=== PATIENT | male | born 1960 | race Caucasian/White ===

== ENCOUNTER 2018-03-11 13:35 | Inpatient (IN) | payer BC, MEDICARE ==
[~2018-03-11] VITALS: Ht 165.1 cm; Wt 113.0 kg
[~2018-03-11 13:35] MED LIST: ACULAR OPHTH DR10 ML OP; ALDACTONE 25MG25 MG PO; AMBIEN 10MG10 MG; AMBIEN 10MG10 MG PO; AMBIEN10 MG PO; ASPIRIN 32325 MG/TAB PO; ASPIRIN E.C. 8181 MG PO; ATENOLOL100 MG PO; BROMDAY 1.7 ML1.7 ML OS; CALCIUM CARBONATE PO; CATAPRES 0.1MG0.1 MG PO; CELLCEPT 5500 MG/TAB PO; CEPHALEXIN500 M1 PO; CEPHALEXIN500 MG PO; CLOPIDOGREL; CLOTRIMAZOLE100 MG PO; COMBIGAN 0.2%-0.5 ML OP; COMBIGAN 0.2%-010 ML OS; COREG 25MG25 MG/TAB PO; COREG PO; CORTISONE; DIOVAN HCT PO; DIOVAN PO; DIOVAN160 MG PO; DUREZOL 5 ML5 ML OS; ELITE MAGNESIUM1 TAB PO; EPA FISH OIL1000 MG PO; EPA1000 MG PO; FASTIN30 MG PO; FOLIC ACID 11 MG/TA1 PO; FOLIC ACID1 MG PO; Folic Acid PO; GABAPENTIN PO; GABAPENTIN100 M1 PO; GLYBURIDE MICRON3 MG PO; HUMALOG100 U/ML SC; HUMALOG100 U/ML SQ; LANTUS100 U/ML; LANTUS100 U/ML SC; LANTUS100 U/ML SQ; LASIX 40MG TABL40 MG PO; LASIX 80MG TABL80 MG PO; LEVAQUIN 5500 MG/TAB PO; LIPITOR 10MG10 MG PO; LISINOPRIL20 MG PO; LISINOPRIL40 MG PO; LIVALO2 MG PO; LOPID 600M600 MG/TAB; LOPID 600M600 MG/TAB PO; LORTAB 5/500 501 TAB PO; LUMIGAN 2.5 ML2.5 M1 OP; LUMIGAN 2.5 ML2.5 ML OP; MAG-OX 400400 MG/TAB PO; MICRO-K 1010 MEQ PO; MICRO-K8 MEQ PO; MYFORTIC180 MG PO; MYFORTIC360 MG PO; NEPHROCAP PO; NEPHROCAPS PO; NEPHROCAPS QT1 ODT PO; NEURONTIN100 MG/CAP PO; NEURONTIN300 MG/CAP; NEURONTIN300 MG/CAP PO; NEXIUM 20MG20 MG PO; NEXIUM 40MG40 MG PO; NEXIUM I.V. 40M40 MG; NEXIUM40 MG PO; NORVASC 5MG5 MG/TAB PO; NORVASC10 MG PO; OCUFLOX OPHTH DR5 ML OU; PHENDIMETRAZIN105 MG PO; PHENTERMINE15 MG PO; PHOS LO PO; PLAVIX 75MG TAB75 MG PO; PRED FORTE 1 ML1 ML OP; PREDNISONE 5MG5 MG PO; PREDNISONE20 MG PO; PREVACID 15MG15 M1 PO; PRILOSEC20 MG PO; PROGRAF 1MG1 MG PO; PROGRAF5 MG PO; PROZAC 20MG20 MG PO; PROZAC40 MG PO; RENVELA800 MG PO; SENSIPAR30 MG PO; SENSIPAR60 MG PO; SEPTRA DS 8001 TAB; SODIUM BICARB; SODIUM BICARB PO; SODIUM BICARBONATE PO; TYLENOL 500MG500 MG PO; VALCYTE PO; VIAGRA; VITAMIN D1000 IU PO; VITAMIN D32000 I1 PO; VITAMIN D5000 IU PO; WELLBUTRIN SR150 M1 PO; ZANTAC 150150 MG PO; ZAROXOLYN PO; ZEMPLAR PO; ZESTRIL40 MG PO; ZOCOR40 MG PO; ZOVIRAX 200MG200 MG; [UNRECOGNIZED DRUG - OTHER] PO; [UNRECOGNIZED DRUG - OTHER] PO
[2018-03-14] VITALS (13 sets, daily range): BP systolic 117–185; BP diastolic 67–90; PULSE 69–96; TEMP 97.7–98.8
[2018-03-14] MEDS ORDERED: COREG 25MG25 MG/TAB PO (05:05)
[2018-03-14] MEDS ORDERED: PREDNISONE 5MG5 MG PO (05:34)
[2018-03-14] MEDS ORDERED: NOVOLIN 70/30 710 ML SQ (05:36)
[2018-03-14] MEDS ORDERED: NOVOLOG 100U100 U/M1 SQ (05:37)
[2018-03-14] MEDS ORDERED: COZAAR 25MG25 MG/TAB PO (05:51)
[2018-03-14] MEDS ORDERED: PROZAC40 MG PO (05:52)
[2018-03-15 03:51] VITALS: BP 152/68; BP 192/97; PULSE 100; PULSE 106; TEMP 98.2
[2018-03-15 07:01] LABS: HEMOGLOBIN 11.5 g/dl (13.5-18.0)
[2018-03-15 07:06] LABS: HEMATOCRIT 35.4 % (42.0-52.0)
[2018-03-15 07:41] VITALS: BP 178/91; PULSE 104; TEMP 98.9
[2018-03-15 11:52] VITALS: BP 185/95; PULSE 103; TEMP 98.4
[2018-03-15 15:35] VITALS: BP 187/93; PULSE 99; TEMP 98.6
[2018-03-15 19:59] VITALS: BP 186/92; PULSE 100; TEMP 98.4
[2018-03-16] VITALS (9 sets, daily range): BP systolic 149–198; BP diastolic 72–93; PULSE 90–106; TEMP 98.3–99.5
[2018-03-16 06:36] LABS: HEMOGLOBIN 11.5 g/dl (13.5-18.0)
[2018-03-16 06:39] LABS: HEMATOCRIT 36.2 % (42.0-52.0)
[2018-03-16 08:32] LABS: CALCIUM 9.5 mg/dL (8.4-10.2); CREATININE, serum 2.93 mg/dL (0.66-1.25); MAGNESIUM 1.5 mg/dL (1.6-2.3); POTASSIUM 4.4 mmol/L (3.4-5.0)
[2018-03-17 04:34] VITALS: BP 147/81; PULSE 98; TEMP 98.7
[2018-03-17 07:15] VITALS: BP 147/89; PULSE 93; TEMP 98.4
[2018-03-17 08:45] LABS: MEAN CELL VOLUME 88 fl (80.0-100.0); MEAN CORPUSCULAR HEMOGLOBIN 28 pg (27.0-31.0); MEAN CORPUSCULAR HGB CONC 31 g/dl (33.0-37.0); MEAN PLATELET VOLUME 9.5 fl (7.4-10.4); PLATELET COUNT 227 K/mm3 (130-400); RED BLOOD COUNT 3.98 M/mm3 (4.20-5.60); REDCELL DISTRIBUTION WIDTH-CV 15.5 % (11.5-14.5)
[2018-03-17 08:55] LABS: CALCIUM 9.4 mg/dL (8.4-10.2); CREATININE, serum 3.27 mg/dL (0.66-1.25); POTASSIUM 4.1 mmol/L (3.4-5.0)
[2018-03-17 08:57] LABS: HEMATOCRIT 35.1 % (42.0-52.0)
[2018-03-17 10:52] LABS: BAND 4 % (0-10); EOSINOPHIL 1 % (0-4); LYMPHOCYTE 17 % (20.0-51.0); NEUTROPHILS 73 % (42.0-75.2); PLATELET ESTIMATE NORMAL (NORMAL)
[2018-03-17 10:53] LABS: ANISOCYTOSIS 1+
[2018-03-17 11:57] VITALS: BP 145/75; PULSE 92; TEMP 98.9
[2018-03-17 16:32] VITALS: BP 138/65; PULSE 88; TEMP 98.3
[2018-03-17] MEDS ORDERED: ASPI325T6 PO (17:34)
[2018-03-17] MEDS ORDERED: TYLENOL 500MG500 MG PO (17:35)
[2018-03-17] MEDS ORDERED: ROXICODONE 55 MG/TAB PO (17:39)
[2018-03-17 19:43] VITALS: BP 178/86; PULSE 80; TEMP 98.2
[2018-03-18] VITALS (7 sets, daily range): BP systolic 136–172; BP diastolic 68–86; PULSE 80–92; TEMP 97.8–99.7
[2018-03-18 06:29] LABS: BASO % 0.3 % (0.0-2.0); EOS # 0.2 (0.0-0.7); EOS % 2.2 % (0-4.0); GRAN # 6.2 (1.4-6.5); GRAN % 66.2 % (42.2-75.2); HEMOGLOBIN 10.1 g/dl (13.5-18.0); LYMPH # 1.8 (1.2-3.4); LYMPH % 19.3 % (20.0-51.0); MEAN CELL VOLUME 87 fl (80.0-100.0); MEAN CORPUSCULAR HEMOGLOBIN 28 pg (27.0-31.0); MEAN CORPUSCULAR HGB CONC 32 g/dl (33.0-37.0); MEAN PLATELET VOLUME 9.7 fl (7.4-10.4); MONO % 10.7 % (1.7-9.3); PLATELET COUNT 214 K/mm3 (130-400); RED BLOOD COUNT 3.61 M/mm3 (4.20-5.60); REDCELL DISTRIBUTION WIDTH-CV 15.4 % (11.5-14.5)
[2018-03-18 06:31] LABS: HEMATOCRIT 31.4 % (42.0-52.0)
[2018-03-18 06:52] LABS: CREATININE, serum 3.29 mg/dL (0.66-1.25); POTASSIUM 4.3 mmol/L (3.4-5.0)
[2018-03-19 04:41] VITALS: BP 144/80; PULSE 81; TEMP 98.2
[2018-03-19 08:13] VITALS: BP 145/79; PULSE 82; TEMP 98.2
[2018-03-19 08:34] LABS: MEAN CELL VOLUME 89 fl (80.0-100.0); MEAN CORPUSCULAR HGB CONC 31 g/dl (33.0-37.0); MEAN PLATELET VOLUME 9.5 fl (7.4-10.4); PLATELET COUNT 213 K/mm3 (130-400); RED BLOOD COUNT 3.42 M/mm3 (4.20-5.60); REDCELL DISTRIBUTION WIDTH-CV 15.3 % (11.5-14.5)
[2018-03-19 08:35] LABS: HEMATOCRIT 30.5 % (42.0-52.0); HEMOGLOBIN 9.4 g/dl (13.5-18.0); MEAN CORPUSCULAR HEMOGLOBIN 27 pg (27.0-31.0)
[2018-03-19 08:45] LABS: CALCIUM 8.8 mg/dL (8.4-10.2); CREATININE, serum 3.33 mg/dL (0.66-1.25); POTASSIUM 4.6 mmol/L (3.4-5.0)
[2018-03-19 08:52] LABS: BAND 5 % (0-10); EOSINOPHIL 2 % (0-4); LYMPHOCYTE 14 % (20.0-51.0); NEUTROPHILS 75 % (42.0-75.2)
[2018-03-19 08:53] LABS: ANISOCYTOSIS 1+
[2018-03-19 08:54] LABS: HYPOCHROMIA 1+; PLATELET ESTIMATE NORMAL (NORMAL)
[2018-03-19 12:26] VITALS: BP 146/77; PULSE 81; TEMP 98.5
[2018-03-19] MEDS ORDERED: NORVASC 10MG10 MG PO (14:04)
[2018-03-19] MEDS ORDERED: COREG 6.256.25 MG/TA PO (14:04)
== END 2018-03-19 15:45 | disposition home or self-care (01) | DRG 470 ==
LOC: JCC 03-14 05:14
PROVIDERS: Hospitalist; Orthopaedic Surgery; Physician Assistant
PROC: 0SRD0J9 Replacement of Left Knee Joint with Synthetic Substitute, Cemented, Open Approach (ICD-10-PCS; principal; 2018-03-14 07:30)
DX: M17.12 Unilateral primary osteoarthritis, left knee (principal); Z94.0 Kidney transplant status; I48.91 Unspecified atrial fibrillation; Z95.5 Presence of coronary angioplasty implant and graft; E11.42 Type 2 diabetes mellitus with diabetic polyneuropathy; E11.319 Type 2 diabetes mellitus with unspecified diabetic retinopathy without macular edema; Z79.4 Long term (current) use of insulin; I12.9 Hypertensive chronic kidney disease with stage 1 through stage 4 chronic kidney disease, or unspecified chronic kidney disease; E11.22 Type 2 diabetes mellitus with diabetic chronic kidney disease; N18.9 Chronic kidney disease, unspecified; E83.42 Hypomagnesemia; I25.10 Atherosclerotic heart disease of native coronary artery without angina pectoris; Z87.891 Personal history of nicotine dependence
CPT/HCPCS: 99223; 99232-AI; 99233-AI; 99239; A9284; C1713; C1776; J1815; J1940; J2250; J2270; J2550; J2704; J3370; J3475; J7030; J7507; J7512; J7517

== ENCOUNTER 2018-04-15 11:13 | Emergency (ER) | payer BC ==
[~2018-04-15] VITALS: Ht 165.1 cm; Wt 109.1 kg
[~2018-04-15 11:13] MED LIST changes: +ASPI325T6 PO; +COREG 6.256.25 MG/TA PO; +COZAAR 25MG25 MG/TAB PO; +NORVASC 10MG10 MG PO; +NOVOLIN 70/30 710 ML SQ; +NOVOLOG 100U100 U/M1 SQ; +ROXICODONE 55 MG/TAB PO
[2018-04-15 11:17] VITALS: TEMP 100.7
[2018-04-15 11:55] LABS: BASO # 0.1 (0.0-0.2); BASO % 0.4 % (0.0-2.0); EOS % 0.1 % (0-4.0); GRAN # 12.2 (1.4-6.5); GRAN % 82.1 % (42.2-75.2); HEMOGLOBIN 10.9 g/dl (13.5-18.0); LYMPH # 1.2 (1.2-3.4); MEAN CELL VOLUME 86 fl (80.0-100.0); MEAN CORPUSCULAR HEMOGLOBIN 27 pg (27.0-31.0); MEAN CORPUSCULAR HGB CONC 32 g/dl (33.0-37.0); MEAN PLATELET VOLUME 10.4 fl (7.4-10.4); MONO # 1.3 (0.1-0.6); MONO % 8.9 % (1.7-9.3); PLATELET COUNT 247 K/mm3 (130-400); REDCELL DISTRIBUTION WIDTH-CV 14.6 % (11.5-14.5)
[2018-04-15 11:57] LABS: HEMATOCRIT 34.3 % (42.0-52.0)
[2018-04-15 12:12] LABS: ALBUMIN 4.2 gm/dL (3.5-5.0); BILIRUBIN,TOTAL 0.8 mg/dL (0.0-1.0); CALCIUM 10.2 mg/dL (8.4-10.2); POTASSIUM 5.2 mmol/L (3.4-5.0); TOTAL PROTEIN 7.7 gm/dL (6.4-8.2)
[2018-04-15 12:18] LABS: CREATININE, serum 4.39 mg/dL (0.66-1.25)
[2018-04-15] MEDS ORDERED: PREVACID 30MG30 M1 PO (12:28)
[2018-04-15 12:43] LABS: C-REACTIVE PROTEIN 46.8 mg/dL (0.0-0.9)
[2018-04-15 15:08] VITALS: BP 139/79; PULSE 96
== END 2018-04-15 15:27 | disposition short-term general hospital (02) ==
LOC: COL.ER 11:13
PROVIDERS: Physician Assistant
DX: A41.9 Sepsis, unspecified organism (principal); R65.20 Severe sepsis without septic shock; N18.9 Chronic kidney disease, unspecified; E11.22 Type 2 diabetes mellitus with diabetic chronic kidney disease; I25.10 Atherosclerotic heart disease of native coronary artery without angina pectoris; Z87.891 Personal history of nicotine dependence; Z98.890 Other specified postprocedural states; Z96.652 Presence of left artificial knee joint; Z79.82 Long term (current) use of aspirin; Z79.4 Long term (current) use of insulin
CPT/HCPCS: J1170; J2405; J3370; J7030; J7050

== ENCOUNTER 2018-04-19 15:45 | Outpatient (RCR) | payer BC ==
[~2018-04-19 15:45] MED LIST changes: +PREVACID24HROTC PO
[2018-04-22] MEDS ORDERED: ROXICODONE 55 MG/TAB PO (18:33)
[2018-04-22] MEDS ORDERED: ULTRAM 50MG TAB50 MG PO (18:35)
[2018-04-22] MEDS ORDERED: ASPIRIN 32325 MG/TA1 PO (19:24)
[2018-04-22] MEDS ORDERED: CYANOCOBAL1000 MCG/M IM (19:25)
[2018-04-22] MEDS ORDERED: INVANZ INJ1 G/VIAL IV (19:27)
[2018-04-22] MEDS ORDERED: FERROUS GL325 MG/TAB PO (19:28)
[2018-04-22] MEDS ORDERED: EPA FISH OIL1 SGL PO (19:29)
[2018-04-22] MEDS ORDERED: NOVOLIN N100 U/ML SQ (19:35)
[2018-04-22] MEDS ORDERED: LOPRESSOR 550 MG/TAB PO (19:37)
[2018-04-22] MEDS ORDERED: SENOKOT S 50 MG1 TAB PO (19:40)
[2018-04-22] MEDS ORDERED: SODIUM BICARBO650 MG PO (19:41)
[2018-04-22] MEDS ORDERED: SYSTANE 0.3-0.1 EACH OP (19:42)
[2018-04-22] MEDS ORDERED: HEPARIN SOD5000 U/ML SQ (19:51)
[2018-05-02] MEDS ORDERED: DULCOLAX S10 MG/SUPP RC (09:09)
[2018-05-02] MEDS ORDERED: SODIUM BICARBO650 MG PO (09:09)
[2018-05-02] MEDS ORDERED: SENOKOT S 50 MG1 TAB PO (09:10)
[2018-05-02] MEDS ORDERED: COLACE 100100 MG/CAP PO (09:10)
[2018-05-02] MEDS ORDERED: NOVLOG SQ ×2 (09:10→09:11)
[2018-05-02] MEDS ORDERED: LEADER CLE17 GM/Dose PO (09:10)
[2018-05-02] MEDS ORDERED: PROGRAF 1MG1 MG PO (09:12)
[2018-05-05] MEDS ORDERED: SODIUM BICARBO650 MG PO (12:22)
[2018-05-05] MEDS ORDERED: NORVASC2.5 MG PO (12:22)
[2018-05-05] MEDS ORDERED: HUMULIN N 10100 U/ML SQ (12:23)
[2018-05-05] MEDS ORDERED: CUBICIN 500MG500 MG IV (13:27)
[2018-05-05] MEDS ORDERED: MERREM VIA500 MG/VIA IV (13:27)
[2018-05-12] MEDS ORDERED: INVANZ INJ1 G/VIAL IV (09:06)
[2018-05-12] MEDS ORDERED: NORVASC 5MG5 MG/TAB PO (09:07)
[2018-05-12] MEDS ORDERED: TYLENOL 8 HR PO (09:08)
== END 2018-05-17 17:04 | disposition home or self-care (01) ==
LOC: WSPT 15:45
DX: Z47.1 Aftercare following joint replacement surgery (principal); Z96.652 Presence of left artificial knee joint

== ENCOUNTER 2018-04-22 15:41 | Inpatient (IN) | payer BC ==
[~2018-04-22] VITALS: Ht 165.1 cm; Wt 105.8 kg
[2018-04-22 16:05] VITALS: BP 165/64; PULSE 64; TEMP 98.3
[2018-04-22] MEDS ORDERED: ROXICODONE 55 MG/TAB PO (18:33)
[2018-04-22] MEDS ORDERED: ULTRAM 50MG TAB50 MG PO (18:35)
[2018-04-22] MEDS ORDERED: ASPIRIN 32325 MG/TA1 PO (19:24)
[2018-04-22] MEDS ORDERED: CYANOCOBAL1000 MCG/M IM (19:25)
[2018-04-22] MEDS ORDERED: INVANZ INJ1 G/VIAL IV (19:27)
[2018-04-22] MEDS ORDERED: FERROUS GL325 MG/TAB PO (19:28)
[2018-04-22] MEDS ORDERED: EPA FISH OIL1 SGL PO (19:29)
[2018-04-22] MEDS ORDERED: NOVOLIN N100 U/ML SQ (19:35)
[2018-04-22] MEDS ORDERED: LOPRESSOR 550 MG/TAB PO (19:37)
[2018-04-22] MEDS ORDERED: SENOKOT S 50 MG1 TAB PO (19:40)
[2018-04-22] MEDS ORDERED: SODIUM BICARBO650 MG PO (19:41)
[2018-04-22] MEDS ORDERED: SYSTANE 0.3-0.1 EACH OP (19:42)
[2018-04-22] MEDS ORDERED: HEPARIN SOD5000 U/ML SQ (19:51)
[2018-04-23 04:59] VITALS: BP 150/62; PULSE 60; TEMP 98.4
[2018-04-23 14:02] VITALS: BP 130/58; PULSE 77; TEMP 97.5
[2018-04-23 17:33] VITALS: BP 135/64; PULSE 59; TEMP 97.9
[2018-04-24 05:12] VITALS: BP 151/71; PULSE 61; TEMP 99.2
[2018-04-24 18:20] VITALS: BP 161/71; PULSE 58; TEMP 97.8
[2018-04-25 04:35] VITALS: BP 145/70; PULSE 62; TEMP 98.2
[2018-04-25 06:26] LABS: MEAN CELL VOLUME 86 fl (80.0-100.0); MEAN CORPUSCULAR HGB CONC 31 g/dl (33.0-37.0); MEAN PLATELET VOLUME 10.4 fl (7.4-10.4); PLATELET COUNT 224 K/mm3 (130-400); RED BLOOD COUNT 2.98 M/mm3 (4.20-5.60); REDCELL DISTRIBUTION WIDTH-CV 13.7 % (11.5-14.5)
[2018-04-25 06:29] LABS: HEMATOCRIT 25.7 % (42.0-52.0); MEAN CORPUSCULAR HEMOGLOBIN 27 pg (27.0-31.0)
[2018-04-25 06:40] LABS: BILIRUBIN,TOTAL 0.3 mg/dL (0.0-1.0); C-REACTIVE PROTEIN 6.9 mg/dL (0.0-0.9); CALCIUM 8.6 mg/dL (8.4-10.2); CREATININE, serum 3.33 mg/dL (0.66-1.25); POTASSIUM 3.9 mmol/L (3.4-5.0)
[2018-04-25 06:50] LABS: ERYTHROCYTE SEDIMENTATION RATE 115 mm/hr (0-30)
[2018-04-25 09:29] LABS: BAND 3 % (0-10); LYMPHOCYTE 25 % (20.0-51.0); NEUTROPHILS 65 % (42.0-75.2); PLATELET ESTIMATE NORMAL (NORMAL)
[2018-04-25 15:36] VITALS: BP 145/65; PULSE 59; TEMP 97.9
[2018-04-26 05:04] VITALS: BP 144/77; PULSE 57; TEMP 98.3
[2018-04-26 15:54] VITALS: BP 131/62; PULSE 62; TEMP 97.9
[2018-04-27 05:29] VITALS: BP 145/73; PULSE 61; TEMP 98.2
[2018-04-27 17:11] VITALS: BP 153/63; PULSE 61; TEMP 98
[2018-04-28 04:29] VITALS: BP 159/69; PULSE 58; TEMP 98.1
[2018-04-28 18:14] VITALS: BP 152/75; PULSE 63; TEMP 97.8
[2018-04-29 05:25] VITALS: BP 170/79; PULSE 56; TEMP 98.1
[2018-04-29 15:27] VITALS: BP 153/76; PULSE 65; TEMP 98.8
[2018-04-30 06:00] VITALS: BP 171/79; PULSE 60; TEMP 97.4
[2018-04-30 17:40] VITALS: BP 167/83; PULSE 63; TEMP 98.7
[2018-05-01 06:00] VITALS: BP 139/89; PULSE 117; TEMP 97.1
[2018-05-01 17:28] VITALS: BP 145/72; PULSE 62; TEMP 98.3
[2018-05-02 05:43] VITALS: BP 161/90; PULSE 58; TEMP 98
[2018-05-02 06:15] LABS: MEAN CELL VOLUME 88 fl (80.0-100.0); MEAN CORPUSCULAR HGB CONC 31 g/dl (33.0-37.0); PLATELET COUNT 252 K/mm3 (130-400); RED BLOOD COUNT 3.11 M/mm3 (4.20-5.60); REDCELL DISTRIBUTION WIDTH-CV 14.5 % (11.5-14.5)
[2018-05-02 06:18] LABS: HEMATOCRIT 27.4 % (42.0-52.0); HEMOGLOBIN 8.4 g/dl (13.5-18.0); MEAN CORPUSCULAR HEMOGLOBIN 27 pg (27.0-31.0)
[2018-05-02 06:28] LABS: ALBUMIN 3.2 gm/dL (3.5-5.0); BILIRUBIN,TOTAL 0.3 mg/dL (0.0-1.0); CALCIUM 8.9 mg/dL (8.4-10.2); CREATININE, serum 3.11 mg/dL (0.66-1.25); POTASSIUM 4.5 mmol/L (3.4-5.0); TOTAL PROTEIN 6.4 gm/dL (6.4-8.2)
[2018-05-02 07:17] LABS: BAND 4 % (0-10); EOSINOPHIL 3 % (0-4); LYMPHOCYTE 32 % (20.0-51.0); NEUTROPHILS 56 % (42.0-75.2); PLATELET ESTIMATE NORMAL (NORMAL)
[2018-05-02 07:18] LABS: ERYTHROCYTE SEDIMENTATION RATE 104 mm/hr (0-30); HYPOCHROMIA 3+
[2018-05-02] MEDS ORDERED: DULCOLAX S10 MG/SUPP RC (09:09)
[2018-05-02] MEDS ORDERED: SODIUM BICARBO650 MG PO (09:09)
[2018-05-02] MEDS ORDERED: LEADER CLE17 GM/Dose PO (09:10)
[2018-05-02] MEDS ORDERED: SENOKOT S 50 MG1 TAB PO (09:10)
[2018-05-02] MEDS ORDERED: NOVLOG SQ ×2 (09:10→09:11)
[2018-05-02] MEDS ORDERED: COLACE 100100 MG/CAP PO (09:10)
[2018-05-02] MEDS ORDERED: PROGRAF 1MG1 MG PO (09:12)
[2018-05-02 16:38] VITALS: BP 166/76; PULSE 61; TEMP 98
[2018-05-02 17:48] LABS: IRON,SERUM 50 ug/dL (35-150)
[2018-05-02 17:53] LABS: RETIC # 0.12 M/mm3 (0.02-0.16); RETIC % 3.8 % (0.5-3.52)
[2018-05-02 17:58] LABS: TOTAL IRON BINDING CAPACITY 196 ug/dL (261-462)
[2018-05-03 06:30] VITALS: BP 178/81; PULSE 63; TEMP 98.6
[2018-05-03 14:01] VITALS: BP 153/74; PULSE 64; TEMP 98.4
[2018-05-03 15:13] VITALS: BP 153/74; PULSE 64; TEMP 98.4
== END 2018-05-03 15:25 | DRG 949 ==
PROVIDERS: Internal Medicine; Internal Medicine Nephrology
DX: T84.54XD Infection and inflammatory reaction due to internal left knee prosthesis, subsequent encounter (principal); Z94.0 Kidney transplant status; N17.9 Acute kidney failure, unspecified; B96.1 Klebsiella pneumoniae [K. pneumoniae] as the cause of diseases classified elsewhere; E11.65 Type 2 diabetes mellitus with hyperglycemia; I25.10 Atherosclerotic heart disease of native coronary artery without angina pectoris; E11.42 Type 2 diabetes mellitus with diabetic polyneuropathy; E11.319 Type 2 diabetes mellitus with unspecified diabetic retinopathy without macular edema; I10 Essential (primary) hypertension; Z95.5 Presence of coronary angioplasty implant and graft; Z79.4 Long term (current) use of insulin; Z87.891 Personal history of nicotine dependence; N18.9 Chronic kidney disease, unspecified; E11.22 Type 2 diabetes mellitus with diabetic chronic kidney disease; I48.91 Unspecified atrial fibrillation
CPT/HCPCS: 99223-AI; 99232-AI; 99233-AI; 99239; J0878; J1335; J1644; J1815; J2185; J2405; J2704; J3010; J3420; J7507; J7512

== ENCOUNTER 2018-05-03 18:11 | Inpatient (IN) | payer BC ==
[2018-05-03] VITALS (9 sets, daily range): BP systolic 135–158; BP diastolic 66–80; PULSE 73–77; TEMP 98.4–98.8
[~2018-05-03 18:11] MED LIST changes: +ASPIRIN 32325 MG/TA1 PO; +COLACE 100100 MG/CAP PO; +CYANOCOBAL1000 MCG/M IM; +DULCOLAX S10 MG/SUPP RC; +EPA FISH OIL1 SGL PO; +FERROUS GL325 MG/TAB PO; +HEPARIN SOD5000 U/ML SQ; +INVANZ INJ1 G/VIAL IV; +LEADER CLE17 GM/Dose PO; +LOPRESSOR 550 MG/TAB PO; +NOVLOG SQ; +NOVOLIN N100 U/ML SQ; +SENOKOT S 50 MG1 TAB PO; +SODIUM BICARBO650 MG PO; +SYSTANE 0.3-0.1 EACH OP; +ULTRAM 50MG TAB50 MG PO
[2018-05-04 00:01] VITALS: BP 135/66; PULSE 75; TEMP 98.6
[2018-05-04 04:50] VITALS: BP 148/79; PULSE 69; TEMP 98.2
[2018-05-04 06:53] LABS: BASO % 0.3 % (0.0-2.0); EOS # 0.1 (0.0-0.7); GRAN # 6.7 (1.4-6.5); GRAN % 73.4 % (42.2-75.2); LYMPH # 1.3 (1.2-3.4); LYMPH % 14.1 % (20.0-51.0); MEAN CELL VOLUME 91 fl (80.0-100.0); MEAN CORPUSCULAR HGB CONC 30 g/dl (33.0-37.0); MONO % 10.5 % (1.7-9.3); PLATELET COUNT 235 K/mm3 (130-400); RED BLOOD COUNT 3.17 M/mm3 (4.20-5.60); REDCELL DISTRIBUTION WIDTH-CV 14.7 % (11.5-14.5)
[2018-05-04 06:55] LABS: HEMATOCRIT 28.8 % (42.0-52.0); HEMOGLOBIN 8.5 g/dl (13.5-18.0); MEAN CORPUSCULAR HEMOGLOBIN 27 pg (27.0-31.0)
[2018-05-04 07:00] LABS: CALCIUM 8.5 mg/dL (8.4-10.2); CREATININE, serum 2.86 mg/dL (0.66-1.25); POTASSIUM 4.8 mmol/L (3.4-5.0)
[2018-05-04 08:55] VITALS: BP 137/75; PULSE 69; TEMP 98.5
[2018-05-04 11:32] VITALS: BP 140/74; PULSE 66; TEMP 98.5
[2018-05-04 15:12] VITALS: BP 125/69; PULSE 67; TEMP 98.1
[2018-05-04 22:00] VITALS: BP 144/69; PULSE 68; TEMP 99
[2018-05-05 04:00] VITALS: BP 141/76; PULSE 70; TEMP 98.3
[2018-05-05 07:59] VITALS: BP 151/77; PULSE 65; TEMP 98.6
[2018-05-05 08:12] LABS: BASO % 0.6 % (0.0-2.0); EOS # 0.2 (0.0-0.7); EOS % 2.4 % (0-4.0); GRAN # 4.1 (1.4-6.5); GRAN % 61.6 % (42.2-75.2); LYMPH # 1.6 (1.2-3.4); MEAN CELL VOLUME 90 fl (80.0-100.0); MEAN CORPUSCULAR HGB CONC 30 g/dl (33.0-37.0); MEAN PLATELET VOLUME 9.7 fl (7.4-10.4); MONO # 0.7 (0.1-0.6); MONO % 10.5 % (1.7-9.3); PLATELET COUNT 207 K/mm3 (130-400); RED BLOOD COUNT 3.03 M/mm3 (4.20-5.60); REDCELL DISTRIBUTION WIDTH-CV 14.8 % (11.5-14.5)
[2018-05-05 08:18] LABS: HEMATOCRIT 27.2 % (42.0-52.0); HEMOGLOBIN 8.2 g/dl (13.5-18.0); MEAN CORPUSCULAR HEMOGLOBIN 27 pg (27.0-31.0)
[2018-05-05 08:24] LABS: CALCIUM 8.4 mg/dL (8.4-10.2); CREATININE, serum 2.9 mg/dL (0.66-1.25); POTASSIUM 4.5 mmol/L (3.4-5.0)
[2018-05-05] MEDS ORDERED: SODIUM BICARBO650 MG PO (12:22)
[2018-05-05] MEDS ORDERED: NORVASC2.5 MG PO (12:22)
[2018-05-05] MEDS ORDERED: HUMULIN N 10100 U/ML SQ (12:23)
[2018-05-05 12:41] VITALS: BP 142/67; PULSE 66; TEMP 97.4
[2018-05-05] MEDS ORDERED: CUBICIN 500MG500 MG IV (13:27)
[2018-05-05] MEDS ORDERED: MERREM VIA500 MG/VIA IV (13:27)
[2018-05-05 16:09] VITALS: BP 142/67; PULSE 64; TEMP 98.8
== END 2018-05-05 16:25 | DRG 486 ==
LOC: SDCO 18:11 → SURG 18:12
PROVIDERS: Internal Medicine Nephrology; Nurse Practitioner Family; Orthopaedic Surgery; Physician Assistant
PROC: 0SUW09Z Supplement Left Knee Joint, Tibial Surface with Liner, Open Approach (ICD-10-PCS; 2018-05-03)
PROC: 0SPD09Z Removal of Liner from Left Knee Joint, Open Approach (ICD-10-PCS; principal; 2018-05-03 17:00)
DX: T84.54XA Infection and inflammatory reaction due to internal left knee prosthesis, initial encounter (principal); Z94.0 Kidney transplant status; N18.4 Chronic kidney disease, stage 4 (severe); I12.9 Hypertensive chronic kidney disease with stage 1 through stage 4 chronic kidney disease, or unspecified chronic kidney disease; E11.22 Type 2 diabetes mellitus with diabetic chronic kidney disease; E11.21 Type 2 diabetes mellitus with diabetic nephropathy; I25.10 Atherosclerotic heart disease of native coronary artery without angina pectoris; Z95.5 Presence of coronary angioplasty implant and graft; E11.42 Type 2 diabetes mellitus with diabetic polyneuropathy; E11.319 Type 2 diabetes mellitus with unspecified diabetic retinopathy without macular edema; I48.91 Unspecified atrial fibrillation; Z87.891 Personal history of nicotine dependence; D63.1 Anemia in chronic kidney disease; L72.3 Sebaceous cyst; Z79.4 Long term (current) use of insulin
CPT/HCPCS: OP; 99223; 99232-AI; 99239; C1776; G8978-GP; G8979-GP; J0360; J0878; J0882; J1170; J1644; J1815; J2185; J2270; J2765; J3010; J3420; J7030; J7507; J7512

== ENCOUNTER 2018-05-05 15:48 | Inpatient (IN) | payer BC ==
[~2018-05-05] VITALS: Ht 165.1 cm; Wt 106.4 kg
[~2018-05-05 15:48] MED LIST changes: +CUBICIN 500MG500 MG IV; +HUMULIN N 10100 U/ML SQ; +MERREM VIA500 MG/VIA IV; +NORVASC2.5 MG PO
[2018-05-05 18:22] VITALS: BP 151/76; PULSE 71; TEMP 99.7
[2018-05-05 18:25] VITALS: BP 142/72; PULSE 56; TEMP 99.4
[2018-05-06 04:38] VITALS: BP 115/36; PULSE 50; TEMP 98.4
[2018-05-06 04:40] VITALS: BP 170/87; PULSE 73; TEMP 97.1
[2018-05-06 17:52] VITALS: BP 175/73; PULSE 68; TEMP 98.5
[2018-05-07 06:32] VITALS: BP 159/75; PULSE 66; TEMP 98.7
[2018-05-07 16:54] VITALS: BP 157/85; PULSE 65; TEMP 98.6
[2018-05-08 04:56] VITALS: BP 176/83; PULSE 63; TEMP 98.1
[2018-05-08 18:30] VITALS: BP 169/80; PULSE 69; TEMP 98.7
[2018-05-09 06:30] VITALS: BP 176/81; PULSE 64; TEMP 98
[2018-05-09 12:14] LABS: MEAN CELL VOLUME 89 fl (80.0-100.0); MEAN CORPUSCULAR HGB CONC 31 g/dl (33.0-37.0); MEAN PLATELET VOLUME 9.6 fl (7.4-10.4); PLATELET COUNT 206 K/mm3 (130-400); RED BLOOD COUNT 3.14 M/mm3 (4.20-5.60); REDCELL DISTRIBUTION WIDTH-CV 14.6 % (11.5-14.5)
[2018-05-09 12:18] LABS: HEMATOCRIT 27.9 % (42.0-52.0); HEMOGLOBIN 8.5 g/dl (13.5-18.0); MEAN CORPUSCULAR HEMOGLOBIN 27 pg (27.0-31.0)
[2018-05-09 12:32] LABS: ALBUMIN 3.4 gm/dL (3.5-5.0); BILIRUBIN,TOTAL 0.4 mg/dL (0.0-1.0); CALCIUM 9.1 mg/dL (8.4-10.2); CREATININE, serum 2.73 mg/dL (0.66-1.25); MAGNESIUM 1.5 mg/dL (1.6-2.3); POTASSIUM 4.8 mmol/L (3.4-5.0); TOTAL PROTEIN 6.6 gm/dL (6.4-8.2)
[2018-05-09 12:46] LABS: ERYTHROCYTE SEDIMENTATION RATE 80 mm/hr (0-30)
[2018-05-09 13:06] LABS: BAND 12 % (0-10); BASOPHIL 1 % (0-2); LYMPHOCYTE 22 % (20.0-51.0); METAMYELOCYTE 1 % (0-0); NEUTROPHILS 61 % (42.0-75.2); PLATELET ESTIMATE NORMAL (NORMAL)
[2018-05-09 17:59] VITALS: BP 161/78; PULSE 66; TEMP 98.7
[2018-05-10 06:45] VITALS: BP 159/87; PULSE 66; TEMP 98.2
[2018-05-10 15:08] VITALS: BP 153/78; PULSE 69; TEMP 98
[2018-05-11 06:30] VITALS: BP 163/83; PULSE 73; TEMP 99.1
[2018-05-11 18:14] VITALS: BP 142/73; PULSE 68; TEMP 98.8
[2018-05-12 03:31] VITALS: BP 186/82; PULSE 65; TEMP 99.3
[2018-05-12 05:49] VITALS: BP 170/81
[2018-05-12] MEDS ORDERED: INVANZ INJ1 G/VIAL IV (09:06)
[2018-05-12] MEDS ORDERED: NORVASC 5MG5 MG/TAB PO (09:07)
[2018-05-12] MEDS ORDERED: TYLENOL 8 HR PO (09:08)
[2018-05-12 15:53] VITALS: BP 148/73; PULSE 69; TEMP 98.3
== END 2018-05-12 18:30 | disposition home or self-care (01) | DRG 949 ==
PROVIDERS: Internal Medicine
DX: T84.54XD Infection and inflammatory reaction due to internal left knee prosthesis, subsequent encounter (principal); Z94.0 Kidney transplant status; N17.9 Acute kidney failure, unspecified; Z68.41 Body mass index [BMI] 40.0-44.9, adult; B96.1 Klebsiella pneumoniae [K. pneumoniae] as the cause of diseases classified elsewhere; I12.9 Hypertensive chronic kidney disease with stage 1 through stage 4 chronic kidney disease, or unspecified chronic kidney disease; E11.22 Type 2 diabetes mellitus with diabetic chronic kidney disease; N18.9 Chronic kidney disease, unspecified; E11.42 Type 2 diabetes mellitus with diabetic polyneuropathy; E11.319 Type 2 diabetes mellitus with unspecified diabetic retinopathy without macular edema; Z95.5 Presence of coronary angioplasty implant and graft; I48.91 Unspecified atrial fibrillation; Z79.4 Long term (current) use of insulin; I25.10 Atherosclerotic heart disease of native coronary artery without angina pectoris; E66.9 Obesity, unspecified
CPT/HCPCS: 99222-AI; 99232-AI; 99239; A9284; J0878; J1335; J1644; J1815; J2185; J3420; J7507; J7512

== ENCOUNTER 2018-07-11 07:30 | Outpatient (RCR) | payer BC ==
[2018-05-13 12:17] VITALS: BP 146/72; PULSE 76; TEMP 98.6
[2018-05-14 07:38] VITALS: BP 143/67; PULSE 72; TEMP 98.4
[2018-05-15 07:40] VITALS: BP 143/79; PULSE 86; TEMP 98.5
[2018-05-16 08:19] VITALS: BP 136/78; PULSE 76; TEMP 97.7
[2018-05-17 08:18] LABS: BASO % 0.5 % (0.0-2.0); EOS # 0.4 (0.0-0.7); EOS % 5.7 % (0-4.0); GRAN # 3.4 (1.4-6.5); GRAN % 51.2 % (42.2-75.2); LYMPH # 2.2 (1.2-3.4); LYMPH % 32.9 % (20.0-51.0); MEAN CELL VOLUME 86 fl (80.0-100.0); MEAN CORPUSCULAR HGB CONC 31 g/dl (33.0-37.0); MEAN PLATELET VOLUME 9.9 fl (7.4-10.4); MONO # 0.6 (0.1-0.6); MONO % 8.9 % (1.7-9.3); PLATELET COUNT 210 K/mm3 (130-400)
[2018-05-17 08:20] LABS: HEMATOCRIT 28.4 % (42.0-52.0); HEMOGLOBIN 8.9 g/dl (13.5-18.0); MEAN CORPUSCULAR HEMOGLOBIN 27 pg (27.0-31.0)
[2018-05-17 08:30] LABS: C-REACTIVE PROTEIN 3.4 mg/dL (0.0-0.9); CREATININE, serum 2.51 mg/dL (0.66-1.25); MAGNESIUM 1.6 mg/dL (1.6-2.3); POTASSIUM 4.9 mmol/L (3.4-5.0)
[2018-05-17 09:37] VITALS: BP 128/54; PULSE 73; TEMP 97.7
[2018-05-18 07:55] VITALS: BP 147/79; PULSE 70; TEMP 98.2
[2018-05-19 07:48] VITALS: BP 123/69; PULSE 73; TEMP 97.7
[2018-05-20 07:44] VITALS: BP 137/78; PULSE 78; TEMP 98.5
[2018-05-21 07:30] VITALS: BP 131/73; PULSE 84; TEMP 98.9
[2018-05-22 07:30] VITALS: BP 133/66; PULSE 71; TEMP 97.8
[2018-05-23 07:53] VITALS: BP 142/68; PULSE 72; TEMP 99
[2018-05-23 08:16] LABS: BASO % 0.2 % (0.0-2.0); EOS # 0.3 (0.0-0.7); EOS % 5.5 % (0-4.0); GRAN # 3.3 (1.4-6.5); GRAN % 55.3 % (42.2-75.2); LYMPH # 1.8 (1.2-3.4); MEAN CELL VOLUME 87 fl (80.0-100.0); MEAN CORPUSCULAR HGB CONC 31 g/dl (33.0-37.0); MEAN PLATELET VOLUME 9.4 fl (7.4-10.4); MONO # 0.5 (0.1-0.6); MONO % 8.3 % (1.7-9.3); PLATELET COUNT 198 K/mm3 (130-400); RED BLOOD COUNT 3.17 M/mm3 (4.20-5.60); REDCELL DISTRIBUTION WIDTH-CV 15.5 % (11.5-14.5)
[2018-05-23 08:20] LABS: HEMATOCRIT 27.5 % (42.0-52.0); HEMOGLOBIN 8.6 g/dl (13.5-18.0); MEAN CORPUSCULAR HEMOGLOBIN 27 pg (27.0-31.0)
[2018-05-23 08:34] LABS: ALBUMIN 3.3 gm/dL (3.5-5.0); BILIRUBIN,TOTAL 0.4 mg/dL (0.0-1.0); C-REACTIVE PROTEIN 4.3 mg/dL (0.0-0.9); CALCIUM 8.9 mg/dL (8.4-10.2); CREATININE, serum 3.07 mg/dL (0.66-1.25); POTASSIUM 4.5 mmol/L (3.4-5.0); TOTAL PROTEIN 6.3 gm/dL (6.4-8.2)
[2018-05-23 08:48] LABS: ERYTHROCYTE SEDIMENTATION RATE 72 mm/hr (0-30)
[2018-05-24 07:42] VITALS: BP 116/74; PULSE 66; TEMP 98.6
[2018-05-25 07:32] VITALS: BP 122/66; PULSE 73; TEMP 98.7
[2018-05-26 07:47] VITALS: BP 126/67; PULSE 69; TEMP 98.3
[2018-05-27 08:50] VITALS: BP 116/60; PULSE 62; TEMP 97.9
[2018-05-28 07:48] VITALS: BP 118/65; PULSE 71; TEMP 98.1
[2018-05-29 08:16] VITALS: BP 115/56; PULSE 77; TEMP 98.5
[2018-05-30 08:14] LABS: BASO % 0.3 % (0.0-2.0); EOS # 0.3 (0.0-0.7); EOS % 3.7 % (0-4.0); GRAN # 3.5 (1.4-6.5); GRAN % 52.7 % (42.2-75.2); LYMPH # 2.2 (1.2-3.4); LYMPH % 32.2 % (20.0-51.0); MEAN CELL VOLUME 84 fl (80.0-100.0); MEAN CORPUSCULAR HGB CONC 32 g/dl (33.0-37.0); MONO # 0.7 (0.1-0.6); MONO % 10.7 % (1.7-9.3); PLATELET COUNT 218 K/mm3 (130-400); RED BLOOD COUNT 3.49 M/mm3 (4.20-5.60)
[2018-05-30 08:15] LABS: HEMATOCRIT 29.3 % (42.0-52.0); HEMOGLOBIN 9.5 g/dl (13.5-18.0); MEAN CORPUSCULAR HEMOGLOBIN 27 pg (27.0-31.0)
[2018-05-30 08:22] LABS: ALBUMIN 3.7 gm/dL (3.5-5.0); BILIRUBIN,TOTAL 0.5 mg/dL (0.0-1.0); C-REACTIVE PROTEIN 5.9 mg/dL (0.0-0.9); CREATININE, serum 2.84 mg/dL (0.66-1.25)
[2018-05-30 08:34] VITALS: BP 126/67; PULSE 73; TEMP 97.6
[2018-05-30 08:46] LABS: ERYTHROCYTE SEDIMENTATION RATE 74 mm/hr (0-30)
[2018-05-31 07:48] VITALS: BP 113/63; PULSE 66; TEMP 98.2
[2018-06-01 07:42] VITALS: BP 127/69; PULSE 68; TEMP 97.9
[2018-06-02 08:04] VITALS: BP 132/68; PULSE 65; TEMP 98.3
[2018-06-03 07:36] VITALS: BP 134/67; PULSE 76; TEMP 97.6
[2018-06-05 07:32] VITALS: BP 143/74; PULSE 65; TEMP 98.1
[2018-06-07 07:48] VITALS: BP 127/61; PULSE 71; TEMP 98.4
[2018-06-07 07:52] LABS: BASO % 0.3 % (0.0-2.0); EOS # 0.3 (0.0-0.7); LYMPH # 1.9 (1.2-3.4); LYMPH % 27.4 % (20.0-51.0); MEAN CELL VOLUME 84 fl (80.0-100.0); MEAN CORPUSCULAR HGB CONC 32 g/dl (33.0-37.0); MEAN PLATELET VOLUME 9.6 fl (7.4-10.4); MONO # 0.7 (0.1-0.6); MONO % 10.3 % (1.7-9.3); PLATELET COUNT 227 K/mm3 (130-400); RED BLOOD COUNT 3.33 M/mm3 (4.20-5.60); REDCELL DISTRIBUTION WIDTH-CV 14.7 % (11.5-14.5)
[2018-06-07 07:53] LABS: HEMATOCRIT 27.9 % (42.0-52.0); MEAN CORPUSCULAR HEMOGLOBIN 27 pg (27.0-31.0)
[2018-06-07 08:01] LABS: ALBUMIN 3.7 gm/dL (3.5-5.0); BILIRUBIN,TOTAL 0.5 mg/dL (0.0-1.0); C-REACTIVE PROTEIN 6.8 mg/dL (0.0-0.9); CREATININE, serum 2.74 mg/dL (0.66-1.25); POTASSIUM 4.2 mmol/L (3.4-5.0); TOTAL PROTEIN 6.8 gm/dL (6.4-8.2)
[2018-06-07 08:32] LABS: ERYTHROCYTE SEDIMENTATION RATE 82 mm/hr (0-30)
[2018-06-09 07:43] VITALS: BP 158/74; PULSE 73; TEMP 97.5
[2018-06-11 07:30] VITALS: BP 144/78; PULSE 68; TEMP 98.2
[2018-06-13 07:48] VITALS: BP 166/78; PULSE 76; TEMP 99.5
[2018-06-13 08:14] LABS: BASO % 0.3 % (0.0-2.0); EOS # 0.5 (0.0-0.7); EOS % 6.1 % (0-4.0); GRAN # 5.5 (1.4-6.5); LYMPH # 1.9 (1.2-3.4); LYMPH % 21.5 % (20.0-51.0); MEAN CELL VOLUME 85 fl (80.0-100.0); MEAN CORPUSCULAR HGB CONC 32 g/dl (33.0-37.0); MEAN PLATELET VOLUME 9.9 fl (7.4-10.4); MONO # 0.7 (0.1-0.6); MONO % 8.4 % (1.7-9.3); PLATELET COUNT 240 K/mm3 (130-400); REDCELL DISTRIBUTION WIDTH-CV 14.8 % (11.5-14.5)
[2018-06-13 08:17] LABS: HEMATOCRIT 28.8 % (42.0-52.0); HEMOGLOBIN 9.3 g/dl (13.5-18.0); MEAN CORPUSCULAR HEMOGLOBIN 27 pg (27.0-31.0)
[2018-06-13 08:26] LABS: ALBUMIN 3.8 gm/dL (3.5-5.0); BILIRUBIN,TOTAL 0.4 mg/dL (0.0-1.0); C-REACTIVE PROTEIN 4.7 mg/dL (0.0-0.9); CALCIUM 9.2 mg/dL (8.4-10.2); CREATININE, serum 2.74 mg/dL (0.66-1.25); POTASSIUM 5.3 mmol/L (3.4-5.0); TOTAL PROTEIN 6.8 gm/dL (6.4-8.2)
[2018-06-13 08:44] LABS: ERYTHROCYTE SEDIMENTATION RATE 82 mm/hr (0-30)
[2018-06-18 07:39] VITALS: BP 123/89; PULSE 76; TEMP 98.9
[2018-06-20 07:44] LABS: MEAN CELL VOLUME 84 fl (80.0-100.0); MEAN CORPUSCULAR HGB CONC 32 g/dl (33.0-37.0); MEAN PLATELET VOLUME 9.5 fl (7.4-10.4); PLATELET COUNT 269 K/mm3 (130-400); RED BLOOD COUNT 3.44 M/mm3 (4.20-5.60); REDCELL DISTRIBUTION WIDTH-CV 15.4 % (11.5-14.5)
[2018-06-20 07:45] LABS: HEMOGLOBIN 9.4 g/dl (13.5-18.0); MEAN CORPUSCULAR HEMOGLOBIN 27 pg (27.0-31.0)
[2018-06-20 07:50] VITALS: BP 142/74; PULSE 68; TEMP 98
[2018-06-20 07:53] LABS: ALBUMIN 3.9 gm/dL (3.5-5.0); BILIRUBIN,TOTAL 0.3 mg/dL (0.0-1.0); CALCIUM 9.2 mg/dL (8.4-10.2); CREATININE, serum 2.67 mg/dL (0.66-1.25); POTASSIUM 4.2 mmol/L (3.4-5.0); TOTAL PROTEIN 7.3 gm/dL (6.4-8.2)
[2018-06-20 08:50] LABS: ERYTHROCYTE SEDIMENTATION RATE 100 mm/hr (0-30)
[2018-06-21 07:41] VITALS: BP 131/68; PULSE 66; TEMP 98.3
[2018-06-22 07:36] VITALS: BP 147/77; PULSE 71; TEMP 98
[2018-06-23 08:02] VITALS: BP 147/67; PULSE 60; TEMP 97.6
[2018-06-24 07:39] VITALS: BP 140/74; PULSE 65; TEMP 98.1
[2018-06-25 07:34] VITALS: BP 163/77; PULSE 65; TEMP 97.4
[2018-06-26 07:40] VITALS: BP 134/71; PULSE 67; TEMP 97.8
[2018-06-27 07:52] VITALS: BP 154/70; PULSE 68; TEMP 98
[2018-06-28 07:46] VITALS: BP 141/74; PULSE 66; TEMP 98
[2018-06-28 08:43] LABS: HEMOGLOBIN 10.2 g/dl (13.5-18.0); MEAN CELL VOLUME 84 fl (80.0-100.0); MEAN CORPUSCULAR HEMOGLOBIN 27 pg (27.0-31.0); MEAN CORPUSCULAR HGB CONC 32 g/dl (33.0-37.0); MEAN PLATELET VOLUME 9.4 fl (7.4-10.4); PLATELET COUNT 268 K/mm3 (130-400); RED BLOOD COUNT 3.74 M/mm3 (4.20-5.60); REDCELL DISTRIBUTION WIDTH-CV 16.2 % (11.5-14.5)
[2018-06-28 08:47] LABS: HEMATOCRIT 31.5 % (42.0-52.0)
[2018-06-28 09:00] LABS: ALBUMIN 3.9 gm/dL (3.5-5.0); BILIRUBIN,TOTAL 0.3 mg/dL (0.0-1.0); C-REACTIVE PROTEIN 1.5 mg/dL (0.0-0.9); CALCIUM 9.1 mg/dL (8.4-10.2); CREATININE, serum 2.51 mg/dL (0.66-1.25); POTASSIUM 4.4 mmol/L (3.4-5.0); TOTAL PROTEIN 6.9 gm/dL (6.4-8.2)
[2018-06-28 09:07] LABS: ERYTHROCYTE SEDIMENTATION RATE 46 mm/hr (0-30)
[2018-06-29 07:51] VITALS: BP 129/75; PULSE 73; TEMP 98
[2018-06-30 07:57] VITALS: BP 132/66; PULSE 71; TEMP 97.9
[2018-07-01 08:29] VITALS: BP 135/75; PULSE 74; TEMP 98
[2018-07-02 07:38] VITALS: BP 156/48; PULSE 72; TEMP 97.6
[2018-07-03 08:41] VITALS: BP 151/77; PULSE 66; TEMP 97.8
[2018-07-04 07:48] LABS: BASO # 0.1 (0.0-0.2); BASO % 0.6 % (0.0-2.0); EOS # 0.2 (0.0-0.7); EOS % 2.7 % (0-4.0); GRAN # 5.3 (1.4-6.5); GRAN % 61.3 % (42.2-75.2); HEMOGLOBIN 10.2 g/dl (13.5-18.0); LYMPH # 2.3 (1.2-3.4); LYMPH % 26.3 % (20.0-51.0); MEAN CELL VOLUME 85 fl (80.0-100.0); MEAN CORPUSCULAR HEMOGLOBIN 28 pg (27.0-31.0); MEAN CORPUSCULAR HGB CONC 33 g/dl (33.0-37.0); MEAN PLATELET VOLUME 9.5 fl (7.4-10.4); MONO # 0.7 (0.1-0.6); MONO % 7.9 % (1.7-9.3); PLATELET COUNT 217 K/mm3 (130-400); RED BLOOD COUNT 3.64 M/mm3 (4.20-5.60); REDCELL DISTRIBUTION WIDTH-CV 16.9 % (11.5-14.5)
[2018-07-04 07:52] VITALS: BP 134/73; PULSE 731; TEMP 98.3
[2018-07-04 07:57] LABS: ALBUMIN 3.6 gm/dL (3.5-5.0); BILIRUBIN,TOTAL 0.3 mg/dL (0.0-1.0); C-REACTIVE PROTEIN 2.5 mg/dL (0.0-0.9); CALCIUM 8.6 mg/dL (8.4-10.2); CREATININE, serum 2.48 mg/dL (0.66-1.25); POTASSIUM 4.2 mmol/L (3.4-5.0); TOTAL PROTEIN 6.6 gm/dL (6.4-8.2)
[2018-07-04 08:13] LABS: HEMATOCRIT 30.9 % (42.0-52.0)
[2018-07-04 08:14] LABS: ERYTHROCYTE SEDIMENTATION RATE 38 mm/hr (0-30)
[2018-07-05 07:41] VITALS: BP 158/77; PULSE 73; TEMP 98
[2018-07-06 08:17] VITALS: BP 145/77; PULSE 71; TEMP 97.6
[2018-07-07 07:37] VITALS: BP 163/77; PULSE 68; TEMP 97.6
[2018-07-08 08:29] VITALS: BP 134/70; PULSE 67; TEMP 98.5
[2018-07-09 07:52] VITALS: BP 117/82; PULSE 70; TEMP 97.2
[2018-07-10 07:41] VITALS: BP 142/69; PULSE 74; TEMP 97.6
[~2018-07-11] VITALS: Ht 165.1 cm; Wt 106.0 kg
[~2018-07-11 07:30] MED LIST changes: -SYSTANE 0.3-0.1 EACH OP; +SYSTANE 0.3-0.1 EACH OU; +TYLENOL 8 HR PO
[2018-07-11 08:03] LABS: BASO % 0.3 % (0.0-2.0); EOS # 0.3 (0.0-0.7); EOS % 3.6 % (0-4.0); GRAN # 5.6 (1.4-6.5); GRAN % 62.2 % (42.2-75.2); HEMOGLOBIN 10.4 g/dl (13.5-18.0); LYMPH # 2.1 (1.2-3.4); MEAN CELL VOLUME 85 fl (80.0-100.0); MEAN CORPUSCULAR HEMOGLOBIN 28 pg (27.0-31.0); MEAN CORPUSCULAR HGB CONC 33 g/dl (33.0-37.0); MEAN PLATELET VOLUME 9.1 fl (7.4-10.4); MONO # 0.9 (0.1-0.6); PLATELET COUNT 192 K/mm3 (130-400); RED BLOOD COUNT 3.74 M/mm3 (4.20-5.60); REDCELL DISTRIBUTION WIDTH-CV 16.1 % (11.5-14.5)
[2018-07-11 08:05] LABS: HEMATOCRIT 31.7 % (42.0-52.0)
[2018-07-11 08:16] LABS: ALBUMIN 3.9 gm/dL (3.5-5.0); BILIRUBIN,TOTAL 0.6 mg/dL (0.0-1.0); C-REACTIVE PROTEIN 4.2 mg/dL (0.0-0.9); CALCIUM 9.4 mg/dL (8.4-10.2); CREATININE, serum 2.56 mg/dL (0.66-1.25); POTASSIUM 4.7 mmol/L (3.4-5.0)
[2018-07-11 08:22] VITALS: BP 134/80; PULSE 72; TEMP 98.8
[2018-07-11 08:27] LABS: ERYTHROCYTE SEDIMENTATION RATE 65 mm/hr (0-30)
[2018-07-19] MEDS ORDERED: TYLENOL 500MG500 MG PO (17:37)
[2018-07-19] MEDS ORDERED: NORVASC 10MG10 MG PO (17:40)
[2018-07-19] MEDS ORDERED: PROCRIT 1010 MU/VIAL SQ (17:56)
[2018-07-19] MEDS ORDERED: NOVOLOG 100U100 U/M1 SQ (18:00)
[2018-07-19] MEDS ORDERED: HUMULIN 70/30 PE3 ML SQ (18:02)
[2018-07-19] MEDS ORDERED: PREVACID 30MG30 M1 PO (18:04)
[2018-07-19] MEDS ORDERED: SODIUM BICARBO650 MG PO (18:09)
[2018-07-19] MEDS ORDERED: PROGRAF 1MG1 MG PO (18:12)
== END 2018-07-18 14:30 | disposition home or self-care (01) ==
LOC: EUO 07:30
PROVIDERS: Internal Medicine; Internal Medicine Infectious Disease
DX: T84.54XA Infection and inflammatory reaction due to internal left knee prosthesis, initial encounter (principal); T81.31XA Disruption of external operation (surgical) wound, not elsewhere classified, initial encounter; S81.002A Unspecified open wound, left knee, initial encounter; B96.1 Klebsiella pneumoniae [K. pneumoniae] as the cause of diseases classified elsewhere; Z96.652 Presence of left artificial knee joint; Z45.2 Encounter for adjustment and management of vascular access device; Z95.828 Presence of other vascular implants and grafts; Z48.00 Encounter for change or removal of nonsurgical wound dressing
CPT/HCPCS: J0878; J1335

== ENCOUNTER 2018-07-19 12:39 | Inpatient (IN) | payer MEDICARE, OTHER ==
[~2018-07-19] VITALS: Ht 167.6 cm; Wt 110.4 kg
[2018-07-19] MEDS ORDERED: TYLENOL 500MG500 MG PO (17:37)
[2018-07-19] MEDS ORDERED: NORVASC 10MG10 MG PO (17:40)
[2018-07-19] MEDS ORDERED: PROCRIT 1010 MU/VIAL SQ (17:56)
[2018-07-19] MEDS ORDERED: NOVOLOG 100U100 U/M1 SQ (18:00)
[2018-07-19] MEDS ORDERED: HUMULIN 70/30 PE3 ML SQ (18:02)
[2018-07-19] MEDS ORDERED: PREVACID 30MG30 M1 PO (18:04)
[2018-07-19] MEDS ORDERED: SODIUM BICARBO650 MG PO (18:09)
[2018-07-19] MEDS ORDERED: PROGRAF 1MG1 MG PO (18:12)
[2018-07-19 18:19] VITALS: BP 112/74; PULSE 70; TEMP 98.2
[2018-07-19 18:25] VITALS: BP 112/74; PULSE 72; TEMP 98.2
[2018-07-20 05:35] VITALS: BP 143/78; PULSE 69; TEMP 98
[2018-07-20 17:44] VITALS: BP 132/65; PULSE 65; TEMP 97.9
[2018-07-21 06:04] VITALS: BP 138/76; PULSE 65; TEMP 97.7
[2018-07-21 18:07] VITALS: BP 129/70; PULSE 63; TEMP 98.1
[2018-07-22 03:58] VITALS: BP 139/75; PULSE 66; TEMP 98.2
[2018-07-22 16:58] VITALS: BP 148/56; PULSE 70; TEMP 98.6
[2018-07-23 04:20] VITALS: BP 132/69; PULSE 73; TEMP 98.2
[2018-07-23 15:38] VITALS: BP 127/66; PULSE 71; TEMP 98
[2018-07-24 05:20] VITALS: BP 117/63; PULSE 67; TEMP 98.2
[2018-07-24 16:14] VITALS: BP 112/52; PULSE 64; TEMP 98.2
[2018-07-25 03:45] VITALS: BP 134/64; PULSE 68; TEMP 97.7
[2018-07-25 07:22] LABS: MEAN CELL VOLUME 89 fl (80.0-100.0); MEAN CORPUSCULAR HGB CONC 31 g/dl (33.0-37.0); MEAN PLATELET VOLUME 9.7 fl (7.4-10.4); PLATELET COUNT 250 K/mm3 (130-400); RED BLOOD COUNT 2.69 M/mm3 (4.20-5.60); REDCELL DISTRIBUTION WIDTH-CV 16.5 % (11.5-14.5)
[2018-07-25 07:26] LABS: HEMATOCRIT 23.9 % (42.0-52.0); HEMOGLOBIN 7.4 g/dl (13.5-18.0); MEAN CORPUSCULAR HEMOGLOBIN 28 pg (27.0-31.0)
[2018-07-25 07:39] LABS: ALBUMIN 3.2 gm/dL (3.5-5.0); BILIRUBIN,TOTAL 0.4 mg/dL (0.0-1.0); C-REACTIVE PROTEIN 7.8 mg/dL (0.0-0.9); CALCIUM 9.1 mg/dL (8.4-10.2); CREATININE, serum 3.03 mg/dL (0.66-1.25); MAGNESIUM 1.6 mg/dL (1.6-2.3); TOTAL PROTEIN 6.2 gm/dL (6.4-8.2)
[2018-07-25 07:43] LABS: BAND 4 % (0-10); BASOPHIL 1 % (0-2); EOSINOPHIL 6 % (0-4); LYMPHOCYTE 16 % (20.0-51.0); NEUTROPHILS 66 % (42.0-75.2); PLATELET ESTIMATE NORMAL (NORMAL)
[2018-07-25 07:44] LABS: ANISOCYTOSIS 1+; MICROCYTOSIS 1+
[2018-07-25 18:00] VITALS: BP 112/34; PULSE 66; TEMP 98.1
[2018-07-26 05:51] VITALS: BP 125/69; PULSE 70; TEMP 98.1
[2018-07-26 18:42] VITALS: BP 108/55; PULSE 70; TEMP 98
[2018-07-27 07:03] VITALS: BP 143/92; PULSE 74; TEMP 98.3
[2018-07-27 09:13] LABS: HEMATOCRIT 25.6 % (42.0-52.0); HEMOGLOBIN 7.7 g/dl (13.5-18.0); MEAN CELL VOLUME 90 fl (80.0-100.0); MEAN CORPUSCULAR HEMOGLOBIN 27 pg (27.0-31.0); MEAN CORPUSCULAR HGB CONC 30 g/dl (33.0-37.0); MEAN PLATELET VOLUME 9.9 fl (7.4-10.4); PLATELET COUNT 238 K/mm3 (130-400); RED BLOOD COUNT 2.86 M/mm3 (4.20-5.60); REDCELL DISTRIBUTION WIDTH-CV 17.2 % (11.5-14.5)
[2018-07-27 09:30] LABS: CALCIUM 9.1 mg/dL (8.4-10.2); CREATININE, serum 3.17 mg/dL (0.66-1.25); MAGNESIUM 1.5 mg/dL (1.6-2.3); POTASSIUM 5.4 mmol/L (3.4-5.0)
[2018-07-27 09:47] LABS: LYMPHOCYTE 16 % (20.0-51.0); NEUTROPHILS 81 % (42.0-75.2); PLATELET ESTIMATE NORMAL (NORMAL)
[2018-07-27 18:00] VITALS: BP 141/63; PULSE 78; TEMP 98.3
[2018-07-28 04:33] VITALS: BP 136/77; PULSE 70; TEMP 98.6
[2018-07-28 08:44] LABS: HEMATOCRIT 25.9 % (42.0-52.0); HEMOGLOBIN 7.9 g/dl (13.5-18.0); MEAN CELL VOLUME 90 fl (80.0-100.0); MEAN CORPUSCULAR HEMOGLOBIN 27 pg (27.0-31.0); MEAN CORPUSCULAR HGB CONC 31 g/dl (33.0-37.0); MEAN PLATELET VOLUME 10.2 fl (7.4-10.4); PLATELET COUNT 245 K/mm3 (130-400); RED BLOOD COUNT 2.89 M/mm3 (4.20-5.60); REDCELL DISTRIBUTION WIDTH-CV 17.2 % (11.5-14.5)
[2018-07-28 08:51] LABS: ALBUMIN 3.6 gm/dL (3.5-5.0); BILIRUBIN,TOTAL 0.4 mg/dL (0.0-1.0); CALCIUM 9.4 mg/dL (8.4-10.2); CREATININE, serum 3.24 mg/dL (0.66-1.25); MAGNESIUM 2.1 mg/dL (1.6-2.3); POTASSIUM 5.5 mmol/L (3.4-5.0); TOTAL PROTEIN 6.5 gm/dL (6.4-8.2)
[2018-07-28 09:27] LABS: BAND 3 % (0-10); LYMPHOCYTE 14 % (20.0-51.0); NEUTROPHILS 80 % (42.0-75.2); PLATELET ESTIMATE NORMAL (NORMAL)
[2018-07-28 09:28] LABS: ANISOCYTOSIS 1+; HYPOCHROMIA 3+
[2018-07-28 17:06] VITALS: BP 149/64; PULSE 73
[2018-07-29 04:01] VITALS: BP 123/78; PULSE 71; TEMP 98.2
[2018-07-29 07:12] LABS: CALCIUM 9.3 mg/dL (8.4-10.2); CREATININE, serum 3.19 mg/dL (0.66-1.25); MAGNESIUM 2.1 mg/dL (1.6-2.3); POTASSIUM 4.9 mmol/L (3.4-5.0)
[2018-07-29 17:16] VITALS: BP 138/70; PULSE 78; TEMP 98.2
[2018-07-30 04:40] VITALS: BP 136/77; PULSE 69; TEMP 98.2
[2018-07-30 06:02] LABS: BASO % 0.6 % (0.0-2.0); EOS # 0.2 (0.0-0.7); EOS % 3.8 % (0-4.0); GRAN # 3.9 (1.4-6.5); GRAN % 60.9 % (42.2-75.2); LYMPH # 1.4 (1.2-3.4); LYMPH % 22.2 % (20.0-51.0); MEAN CELL VOLUME 91 fl (80.0-100.0); MEAN CORPUSCULAR HGB CONC 29 g/dl (33.0-37.0); MEAN PLATELET VOLUME 9.6 fl (7.4-10.4); MONO # 0.7 (0.1-0.6); MONO % 11.4 % (1.7-9.3); PLATELET COUNT 208 K/mm3 (130-400); REDCELL DISTRIBUTION WIDTH-CV 17.3 % (11.5-14.5)
[2018-07-30 06:03] LABS: HEMATOCRIT 25.4 % (42.0-52.0); HEMOGLOBIN 7.4 g/dl (13.5-18.0); MEAN CORPUSCULAR HEMOGLOBIN 26 pg (27.0-31.0)
[2018-07-30 06:14] LABS: CALCIUM 9.2 mg/dL (8.4-10.2); CREATININE, serum 3.25 mg/dL (0.66-1.25); POTASSIUM 5.3 mmol/L (3.4-5.0)
[2018-07-30 16:31] VITALS: BP 142/69; PULSE 79; TEMP 97.8
[2018-07-31 03:29] VITALS: BP 126/76; PULSE 72; TEMP 98.2
[2018-07-31 18:00] VITALS: BP 132/63; PULSE 71; TEMP 98.3
[2018-08-01 06:48] VITALS: BP 140/71; PULSE 70
[2018-08-01 06:51] LABS: BASO % 0.5 % (0.0-2.0); EOS # 0.4 (0.0-0.7); EOS % 6.6 % (0-4.0); GRAN # 3.6 (1.4-6.5); GRAN % 59.8 % (42.2-75.2); LYMPH # 1.4 (1.2-3.4); LYMPH % 22.8 % (20.0-51.0); MEAN CELL VOLUME 93 fl (80.0-100.0); MEAN CORPUSCULAR HGB CONC 29 g/dl (33.0-37.0); MEAN PLATELET VOLUME 9.9 fl (7.4-10.4); MONO # 0.6 (0.1-0.6); MONO % 9.3 % (1.7-9.3); PLATELET COUNT 180 K/mm3 (130-400); RED BLOOD COUNT 2.98 M/mm3 (4.20-5.60); REDCELL DISTRIBUTION WIDTH-CV 17.6 % (11.5-14.5)
[2018-08-01 06:55] LABS: HEMATOCRIT 27.8 % (42.0-52.0); MEAN CORPUSCULAR HEMOGLOBIN 27 pg (27.0-31.0)
[2018-08-01 07:08] LABS: ALBUMIN 3.4 gm/dL (3.5-5.0); BILIRUBIN,TOTAL 0.3 mg/dL (0.0-1.0); C-REACTIVE PROTEIN 3.2 mg/dL (0.0-0.9); CALCIUM 9.3 mg/dL (8.4-10.2); CREATININE, serum 3.21 mg/dL (0.66-1.25); POTASSIUM 5.6 mmol/L (3.4-5.0); TOTAL PROTEIN 6.3 gm/dL (6.4-8.2)
[2018-08-01 17:25] VITALS: BP 157/84; PULSE 82; TEMP 98.6
[2018-08-02 06:20] VITALS: BP 141/74; PULSE 83; TEMP 98.7
[2018-08-02] MEDS ORDERED: FORTAZ2 G1 IV (12:44)
[2018-08-02] MEDS ORDERED: ZITHROMAX500 M2 PO (12:45)
[2018-08-02] MEDS ORDERED: PROAIR HFA0.09 MG/AC IH (12:46)
[2018-08-02] MEDS ORDERED: NORVASC 5MG5 MG/TAB PO (12:46)
[2018-08-02] MEDS ORDERED: LASIX 40MG TABL40 MG PO (12:47)
[2018-08-02] MEDS ORDERED: ZOFRAN ODT4 MG PO (12:48)
[2018-08-02] MEDS ORDERED: MAG-OX 400400 MG/TAB PO (12:48)
[2018-08-02] MEDS ORDERED: PROGRAF 1MG1 MG PO (12:49)
[2018-08-02] MEDS ORDERED: ROXICODONE 55 MG/TAB PO (12:49)
[2018-08-02 18:28] VITALS: BP 139/71; PULSE 82; TEMP 98.4
== END 2018-08-02 19:15 | disposition home health service (06) | DRG 949 ==
PROVIDERS: Internal Medicine
DX: T84.54XD Infection and inflammatory reaction due to internal left knee prosthesis, subsequent encounter (principal); J81.0 Acute pulmonary edema; Z94.0 Kidney transplant status; E11.52 Type 2 diabetes mellitus with diabetic peripheral angiopathy with gangrene; I96 Gangrene, not elsewhere classified; N17.9 Acute kidney failure, unspecified; E87.1 Hypo-osmolality and hyponatremia; I12.9 Hypertensive chronic kidney disease with stage 1 through stage 4 chronic kidney disease, or unspecified chronic kidney disease; E11.22 Type 2 diabetes mellitus with diabetic chronic kidney disease; N18.3 Chronic kidney disease, stage 3 (moderate); B96.5 Pseudomonas (aeruginosa) (mallei) (pseudomallei) as the cause of diseases classified elsewhere; I25.10 Atherosclerotic heart disease of native coronary artery without angina pectoris; Z95.5 Presence of coronary angioplasty implant and graft; I48.91 Unspecified atrial fibrillation; E11.42 Type 2 diabetes mellitus with diabetic polyneuropathy; E11.319 Type 2 diabetes mellitus with unspecified diabetic retinopathy without macular edema; Z87.891 Personal history of nicotine dependence; E83.42 Hypomagnesemia; G47.33 Obstructive sleep apnea (adult) (pediatric); D63.1 Anemia in chronic kidney disease; E87.5 Hyperkalemia
CPT/HCPCS: 99222-AI; 99232-AI; 99233-AI; 99239; J0456; J0713; J0881; J1815; J1940; J3475; J7050; J7507; J7512

== ENCOUNTER 2019-06-29 11:02 | Outpatient (CLI) | payer MEDICARE, MEDICAID ==
[~2019-06-29] VITALS: Ht 167.6 cm; Wt 122.0 kg
[~2019-06-29 11:02] MED LIST changes: +FORTAZ2 G1 IV; +HUMULIN 70/30 PE3 ML SQ; +PREVACID 30MG30 M1 PO; +PROAIR HFA0.09 MG/AC IH; +PROCRIT 1010 MU/VIAL SQ; +ZITHROMAX500 M2 PO; +ZOFRAN ODT4 MG PO
[2019-06-29 11:15] VITALS: BP 162/94; PULSE 71; TEMP 98.1
[2019-06-29] MEDS ORDERED: NORVASC 5MG5 MG/TAB PO (11:34)
[2019-06-29] MEDS ORDERED: NOVOLOG 100U100 U/M1 SQ (11:39)
[2019-06-29] MEDS ORDERED: PROGRAF 1MG1 MG PO (11:43)
[2019-06-29] MEDS ORDERED: ROCALTROL0.5 MCG PO (11:46)
[2019-06-29] MEDS ORDERED: SODIUM BICARBO650 MG PO (11:47)
[2019-06-29 14:22] VITALS: BP 147/93; PULSE 60
--- NOTE | 2019-06-29 14:26 | NUR ---
SEE MERGE REPORT FOR MEDICATION ADMINISTRATION TIMES WELL INTRA/POST SEDATION ASSESSMENTS.
[2019-06-29 15:00] VITALS: BP 151/92; PULSE 61
--- NOTE | 2019-06-29 15:00 | NUR ---
Pt returned to EU 14 per bed s/p fistulogram. Pt resting well. Pt has stitch over fistulogram site. Pt instructed this will disolve and does not need to be removed.
[2019-06-29 15:15] VITALS: BP 147/90; PULSE 60
[2019-06-29 15:30] VITALS: BP 143/91; PULSE 60
[2019-06-29 15:45] VITALS: BP 159/92; PULSE 60
--- NOTE | 2019-06-29 15:50 | NUR ---
Pt has ambulated and sosa PO intake s n/v. PIV removed with catheter intact.
--- NOTE | 2019-06-29 16:00 | NUR ---
Pt discharged per w/c by admissions staff with medical G and B medical transportation.
== END 2019-06-29 16:11 | disposition home or self-care (01) ==
LOC: COL.CAR 11:02
DX: T82.898A Other specified complication of vascular prosthetic devices, implants and grafts, initial encounter (principal); I10 Essential (primary) hypertension; E11.9 Type 2 diabetes mellitus without complications; Z90.49 Acquired absence of other specified parts of digestive tract; Z96.652 Presence of left artificial knee joint; Z88.0 Allergy status to penicillin; Z88.1 Allergy status to other antibiotic agents; Z88.8 Allergy status to other drugs, medicaments and biological substances; Z79.4 Long term (current) use of insulin; Z79.52 Long term (current) use of systemic steroids; Z79.82 Long term (current) use of aspirin
CPT/HCPCS: J1644; J2250; J3010; J7050; Q9967

== ENCOUNTER 2020-05-07 10:19 | Day surgery (SDC) | payer MEDICARE, MEDICAID ==
[~2020-05-07] VITALS: Ht 167.7 cm; Wt 102.2 kg
[~2020-05-07 10:19] MED LIST changes: +CALCITRIOL PO
[2020-05-07] MEDS ORDERED: ASPIRIN E.C. 8181 MG PO (11:04)
[2020-05-07] MEDS ORDERED: ZESTRIL 20MG TA20 MG PO (11:05)
[2020-05-07] MEDS ORDERED: NOVOLIN R100 U/ML SQ (11:07)
[2020-05-07] MEDS ORDERED: NOVOLOG 100U100 U/M1 SQ (11:08)
[2020-05-07] MEDS ORDERED: AMBIEN 10MG10 MG PO (11:09)
[2020-05-07] MEDS ORDERED: ENVARSUS XR1 MG PO (11:11)
[2020-05-07] MEDS ORDERED: MYFORTIC180 MG PO (11:13)
[2020-05-07] MEDS ORDERED: ATARAX50 MG PO (11:16)
[2020-05-07] MEDS ORDERED: NORVASC 5MG5 MG/TAB PO ×2 (11:17→12:33)
[2020-05-07] MEDS ORDERED: PREDNISONE 5MG5 MG PO (11:17)
[2020-05-07] MEDS ORDERED: REVATIO20 MG PO (11:18)
[2020-05-07 11:27] LABS: HEMOGLOBIN 10.2 g/dl (13.5-18.0); MEAN CELL VOLUME 87 fl (80.0-100.0); MEAN CORPUSCULAR HEMOGLOBIN 29 pg (27.0-31.0); MEAN CORPUSCULAR HGB CONC 33 g/dl (33.0-37.0); MEAN PLATELET VOLUME 9.4 fl (7.4-10.4); PLATELET COUNT 143 K/mm3 (130-400); RED BLOOD COUNT 3.55 M/mm3 (4.20-5.60); REDCELL DISTRIBUTION WIDTH-CV 14.6 % (11.5-14.5)
[2020-05-07 11:29] LABS: CALCIUM 8.5 mg/dL (8.4-10.2); CREATININE, serum 4.5 (0.66-1.25); HEMATOCRIT 30.9 % (42.0-52.0); POTASSIUM 4.9 mmol/L (3.4-5.0)
[2020-05-07 11:31] LABS: INR 1.1 (0.8-3.0); PROTHROMBIN TIME 12.1 SECONDS (9.7-12.8)
[2020-05-07 12:07] VITALS: BP 149/84; PULSE 63; TEMP 98.3
--- NOTE | 2020-05-07 12:51 | NUR ---
Per Dr Becker,Procedure cancelled.INt removed,catheter tip intact.
--- NOTE | 2020-05-07 13:30 | NUR ---
INT REMOVED,CATHETER TIP INTACT.DISCHARGE INSTRUCTIONS GIVEN TO PT.PT VERBALIZES UNDERSTANDING.PT ESCORTED OUT BY THIS NURSE.
== END 2020-05-07 14:08 | disposition home or self-care (01) ==
LOC: COL.CAR 10:19
PROVIDERS: Internal Medicine Cardiovascular Disease
DX: R06.02 Shortness of breath (principal); Z53.9 Procedure and treatment not carried out, unspecified reason; I25.110 Atherosclerotic heart disease of native coronary artery with unstable angina pectoris; E78.5 Hyperlipidemia, unspecified; E11.22 Type 2 diabetes mellitus with diabetic chronic kidney disease; I12.9 Hypertensive chronic kidney disease with stage 1 through stage 4 chronic kidney disease, or unspecified chronic kidney disease; N18.9 Chronic kidney disease, unspecified; Z94.0 Kidney transplant status; Z88.0 Allergy status to penicillin; Z88.8 Allergy status to other drugs, medicaments and biological substances; Z95.818 Presence of other cardiac implants and grafts; Z20.828 Contact with and (suspected) exposure to other viral communicable diseases; Z90.49 Acquired absence of other specified parts of digestive tract; Z79.4 Long term (current) use of insulin; Z96.651 Presence of right artificial knee joint; Z79.82 Long term (current) use of aspirin; Z79.899 Other long term (current) drug therapy; Z87.891 Personal history of nicotine dependence; Z80.9 Family history of malignant neoplasm, unspecified

== ENCOUNTER 2020-12-09 19:47 | Inpatient (IN) | payer MEDICARE, MEDICAID ==
[~2020-12-09] VITALS: Ht 165.1 cm; Wt 110.0 kg
[~2020-12-09 19:47] MED LIST changes: +ATARAX50 MG PO; +ENVARSUS XR1 MG PO; +NOVOLIN R100 U/ML SQ; +REVATIO20 MG PO; +ZESTRIL 20MG TA20 MG PO
[2020-12-09 20:22] LABS: HEMOGLOBIN 11.5 g/dl (13.5-18.0); MEAN CELL VOLUME 97 fl (80.0-100.0); MEAN CORPUSCULAR HEMOGLOBIN 29 pg (27.0-31.0); MEAN CORPUSCULAR HGB CONC 30 g/dl (33.0-37.0); MEAN PLATELET VOLUME 9.9 fl (7.4-10.4); PLATELET COUNT 140 K/mm3 (130-400); RED BLOOD COUNT 4.01 M/mm3 (4.20-5.60); REDCELL DISTRIBUTION WIDTH-CV 16.3 % (11.5-14.5)
[2020-12-09 20:34] LABS: ALBUMIN 4.1 gm/dL (3.5-5.0); BILIRUBIN,TOTAL 0.5 mg/dL (0.0-1.0); CALCIUM 8.1 mg/dL (8.4-10.2); CREATININE, serum 4.39 (0.66-1.25); POTASSIUM 5.4 mmol/L (3.4-5.0); TOTAL PROTEIN 6.8 gm/dL (6.4-8.2)
[2020-12-09 20:40] LABS: INR 1.1 (0.8-3.0); PROTHROMBIN TIME 12.3 SECONDS (9.7-12.8)
[2020-12-09 20:45] LABS: TROPONIN-I 0.022 ng/mL (0.000-0.035)
[2020-12-09 20:55] LABS: BAND 5 % (0-10); LYMPHOCYTE 11 % (20.0-51.0); NEUTROPHILS 80 % (42.0-75.2)
[2020-12-09 20:56] LABS: HYPOCHROMIA 1+
--- NOTE | 2020-12-09 23:15 | NUR ---
Patient to medical room 353 at this time. He is able to ambulate from stretcher to bed with cane. He states his chest pain has subsided and he only feels SOA on exertion. He wears 2liters 02 at this time. Bilateral lower extremity edema with 1+ pitting is noted. Heart rhythm is currently NSR on the monitor. Left forearm fistula has audible bruit and palpable thrill. 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 Will continue to monitor.
[2020-12-09 23:20] VITALS: BP 168/90; PULSE 67; TEMP 97.9
--- NOTE | 2020-12-09 23:45 | NUR ---
BP 168/90 at this time. [facility] is notified and recommends bladder scan and kimble insertion is result is > 250 ml. Patient is able to void 550 mls in urinal; post-void residual is 2 mls. Patient started on Bumex gtt at [facility]3 mg[facility] His BG is 112 and evening dose of Novolin is held.
[2020-12-10] VITALS (20 sets, daily range): BP systolic 142–176; BP diastolic 69–96; PULSE 65–78; TEMP 97.6–98.6
[2020-12-10 00:57] LABS: COLLECTION METHOD CLEAN CATCH
[2020-12-10 01:04] LABS: PH 6 (5-8); SQUAMOUS EPITHELIAL None Seen /hpf; URINE APPEARANCE Clear; URINE BACTERIA None Seen /hpf; URINE BILIRUBIN Negative (NEGATIVE); URINE BLOOD 1+ (NEGATIVE); URINE COLOR Straw; URINE GLUCOSE 3+ (NEGATIVE); URINE KETONE Trace (NEGATIVE); URINE LEUKOCYTE ESTERASE Negative (NEGATIVE); URINE NITRATE Negative (NEGATIVE); URINE PROTEIN(semi-quant) 3+ (NEGATIVE); URINE UROBILINOGEN Negative (NEGATIVE)
--- NOTE | 2020-12-10 02:43 | NUR ---
Patient is poor historian of medications and states he is unaware of specific times and doses of meds prescribed. Asifmoon is aware and nursing staff will contact his pharmacy through [facility] in am.
[2020-12-10 02:52] LABS: BASO % 0.3 % (0.0-2.0); EOS % 0.5 % (0-4.0); GRAN # 4.8 (1.4-6.5); GRAN % 73.8 % (42.2-75.2); HEMOGLOBIN 10.3 g/dl (13.5-18.0); LYMPH % 14.9 % (20.0-51.0); MEAN CELL VOLUME 94 fl (80.0-100.0); MEAN CORPUSCULAR HEMOGLOBIN 30 pg (27.0-31.0); MEAN CORPUSCULAR HGB CONC 32 g/dl (33.0-37.0); MEAN PLATELET VOLUME 10.3 fl (7.4-10.4); MONO # 0.6 (0.1-0.6); MONO % 9.7 % (1.7-9.3); PLATELET COUNT 124 K/mm3 (130-400); RED BLOOD COUNT 3.49 M/mm3 (4.20-5.60); REDCELL DISTRIBUTION WIDTH-CV 16.3 % (11.5-14.5)
[2020-12-10 02:54] LABS: HEMATOCRIT 32.7 % (42.0-52.0)
--- NOTE | 2020-12-10 03:00 | NUR ---
Troponin elevated at 0.3. Bedros notified and orders national insurance officer consult. Patient has no new complaint of chest pain.
[2020-12-10 03:02] LABS: ALBUMIN 3.6 gm/dL (3.5-5.0); CALCIUM 7.9 mg/dL (8.4-10.2); CREATININE, serum 4.31 (0.66-1.25); PHOSPHOROUS 4.7 mg/dL (2.5-4.5); POTASSIUM 5.3 mmol/L (3.4-5.0)
[2020-12-10 03:17] LABS: TROPONIN-I 6 HR POST INITIAL 0.317 ng/mL (0.000-0.034)
--- NOTE | 2020-12-10 05:53 | NUR ---
SBP 168 AT THIS TIME. PRN APRESOLINE 25 MG PO ADMINISTERED.
[2020-12-10] MEDS ORDERED: NOVOLIN N100 UNIT/1 SQ (10:56)
[2020-12-10] MEDS ORDERED: LASIX 40MG TABL40 MG PO (11:01)
[2020-12-10] MEDS ORDERED: COMBIGAN 0.2%-0.5 ML OU (11:02)
--- NOTE | 2020-12-10 12:15 | NUR ---
Patient is going for heart cath. He signed his consent. Patients home medications given late today due to his meds were not update in the computer and he could remember the doses of his medications. His sister email him a copy of his medlist and we updated it in the computer. No other changes at this time.
--- NOTE | 2020-12-10 12:37 | NUR ---
SEE MERGE FOR ALL MEDICATION ADMINISTRATION TIMES, INTRA AND POST SEDATION ASSESSMENT
--- NOTE | 2020-12-10 13:45 | NUR ---
Patient is back from his heart cath. He is alert and oriented. He is having increased pain to his lower back. He has chronic back pain and laying flat is hard for him. Groin site is soft and supple, no signs of bleeding. Dressing is C/D/I. No hematoma noted. He is upset about his 6 hour flat time. He is worried he won't tolerate it. No other changes at this time. Call light within reach.
--- NOTE | 2020-12-10 14:45 | NUR ---
Mechanical Engineering Intern met with the patient to complete intake. The patient lives in [place] with his sister, Courtney and her family. The patient uses a cane and has a walker. The patient uses a CPAP and receives those supplies from [facility]. The patient's PCP is Dr. Gonzalez and patient receives medication from [facility]. The patient had advanced directives in the EMR. The patient plans to return home at discharge. The patient does not receives dialysis at this time. He states he had a kidney transplant eight years ago. PT ordered. *Discharge disposition* Home with sister and her family
[2020-12-10 14:50] LABS: PARTIAL THROMBOPLASTIN TIME 45.3 SECONDS (26.0-37.0)
--- NOTE | 2020-12-10 18:30 | NUR ---
Patient got one dose of fentanyl for back pain. He stated it has helped his pain. He has been resting most the afternoon. NO complaints of nausea. He stated he has the urge to void but can't go. He stated he thinks he will have to stand up to do it. He has one hour left so he stated he will wait. No changes to right groin site, still soft without bleeding and no signs of hematoma. No other changes at this time. Call light within reach.
[2020-12-11] VITALS (7 sets, daily range): BP systolic 131–174; BP diastolic 68–84; PULSE 60–66; TEMP 97.9–98.2
[2020-12-11 03:38] LABS: BASO % 0.4 % (0.0-2.0); EOS % 0.5 % (0-4.0); GRAN # 3.8 (1.4-6.5); GRAN % 67.2 % (42.2-75.2); LYMPH # 1.2 (1.2-3.4); MEAN CELL VOLUME 95 fl (80.0-100.0); MEAN CORPUSCULAR HGB CONC 31 g/dl (33.0-37.0); MONO # 0.6 (0.1-0.6); MONO % 10.2 % (1.7-9.3); PLATELET COUNT 118 K/mm3 (130-400); RED BLOOD COUNT 3.29 M/mm3 (4.20-5.60)
[2020-12-11 03:42] LABS: HEMATOCRIT 31.1 % (42.0-52.0); HEMOGLOBIN 9.5 g/dl (13.5-18.0); MEAN CORPUSCULAR HEMOGLOBIN 29 pg (27.0-31.0)
[2020-12-11 03:49] LABS: ALBUMIN 3.5 gm/dL (3.5-5.0); CALCIUM 7.3 mg/dL (8.4-10.2); CREATININE, serum 4.68 (0.66-1.25); PHOSPHOROUS 4.7 mg/dL (2.5-4.5); POTASSIUM 5.1 mmol/L (3.4-5.0)
--- NOTE | 2020-12-11 05:30 | NUR ---
Patient's BP 174/83. PRN apresoline administered. Will continue to monitor.
--- NOTE | 2020-12-11 08:30 | NUR ---
resting in bed, full assessment completed, see interventions for further info, sitting up in bed and breakfast is here, states had another loose BM after having incontinent stool at change of shift, he states this is what he does at home at times,
--- NOTE | 2020-12-11 09:20 | NUR ---
physical therapy in to work with patient
--- NOTE | 2020-12-11 09:42 | NUR ---
Initial visit; Patient thanked Marketing Traffic Manager for stopping though states he has no needs at this time. Marketing Traffic Manager offered God's blessings.
--- NOTE | 2020-12-11 11:00 | NUR ---
sitting up in chair watching TV, denies needs
--- NOTE | 2020-12-11 12:35 | NUR ---
sitting up in chair ready to eat lunch, provided juice for blood sugar in the 50s
--- NOTE | 2020-12-11 13:20 | NUR ---
in bed and appears to be sleeping, eyes closed, resp quiet and easy
--- NOTE | 2020-12-11 14:45 | NUR ---
bedside shift report given to EMMANUEL Ortiz
--- NOTE | 2020-12-11 17:25 | NUR ---
Patient WBG 45 at 1600, nurse gave orange juice with added sugar and crackers and peanut butter. Rechecked at 1630 and up to 54. Gave another orange juice with sugar and rechecked at 1700 up to 66. Patient was drowsy and is more alert. Patient ordered dinner and nursing staff will continue to monitor WBG. VSS 2L NC O2, no reported SOB.. IV CDI, fluids infusing. Denies pain and discomfort. Call light within reach
--- NOTE | 2020-12-11 19:01 | NUR ---
Received report from Diana. Patient sitting in the recliner. He had hypoglycemia episodes awhile ago. Diana gave another cup of juice and will recheck him again later.
--- NOTE | 2020-12-11 20:30 | NUR ---
Assesment done. Patient went back to bed. On O2 at 2lpm via NC. Informed patient that HepaXa result is in goal range, next lab draw will be at 0200H. Instructed him that HepaXa lab works is every 6 hours. He verbalizes understanding. Dr. Parham called to ask for an update regarding patient's blood glucose. Informed him on plan to recheck patient's glucose at HS and midnight. He agreed on not giving Insulin tonight.
[2020-12-12] VITALS (7 sets, daily range): BP systolic 139–159; BP diastolic 62–82; PULSE 63–66; TEMP 97.4–98.2
--- NOTE | 2020-12-12 05:43 | NUR ---
Midnight glucose is 126mg/dl. HepaXa has been on goal, no change on rate on heparin at 14ml/hr. Still on O2 at 2lpm via NC.
[2020-12-12 08:32] LABS: BASO % 0.4 % (0.0-2.0); EOS # 0.1 (0.0-0.7); EOS % 1.9 % (0-4.0); GRAN # 3.2 (1.4-6.5); GRAN % 60.7 % (42.2-75.2); LYMPH # 1.4 (1.2-3.4); LYMPH % 25.9 % (20.0-51.0); MEAN CELL VOLUME 95 fl (80.0-100.0); MEAN CORPUSCULAR HGB CONC 30 g/dl (33.0-37.0); MEAN PLATELET VOLUME 10.3 fl (7.4-10.4); MONO # 0.6 (0.1-0.6); MONO % 10.3 % (1.7-9.3); PLATELET COUNT 123 K/mm3 (130-400); RED BLOOD COUNT 3.43 M/mm3 (4.20-5.60); REDCELL DISTRIBUTION WIDTH-CV 15.8 % (11.5-14.5)
[2020-12-12 08:44] LABS: ALBUMIN 3.8 gm/dL (3.5-5.0); CALCIUM 7.6 mg/dL (8.4-10.2); CREATININE, serum 4.68 (0.66-1.25); PHOSPHOROUS 4.5 mg/dL (2.5-4.5)
[2020-12-12 08:46] LABS: HEMATOCRIT 32.5 % (42.0-52.0); HEMOGLOBIN 9.8 g/dl (13.5-18.0); MEAN CORPUSCULAR HEMOGLOBIN 29 pg (27.0-31.0)
--- NOTE | 2020-12-12 09:41 | NUR ---
HepXa level 0.39 and is withing goal range, no rate change to be made and Hep gtt will continue to run at 14ml/hr, will recheck level 12/13/20 @ 0600
--- NOTE | 2020-12-12 11:34 | NUR ---
PT recommends home health vs outpatient PT. HARRY met with the patient to review d/c plan and to discuss their recommendation. The patient confirms that he plans on returning home upon discharge. He states that he has had home health in the past and believes it was from the agency, [facility] [place]. The patient reports that he would be interested in home health again from [facility]. HARRY contacted and faxed a referral to Juanita at [facility] [place]. Awaiting screen. The patient is to have a stent placement tomorrow. SW to continue to follow.
--- NOTE | 2020-12-12 13:55 | NUR ---
Primary nurse was assisted with [id number] patient care by [facility] Kimber Arrington and [facility] [employer] instructor Arlin Chawla MSN, RN.
--- NOTE | 2020-12-12 23:04 | NUR ---
PT ASSESSMENT DONE. ALERT AND OX4. DENIES ANY CHEST PAIN, DIZZY OR NAUSEA. IS SOA CHRONICALLY AND WITH ACTVITY. NPO AT MIDNIGHT FOR HEART CATH IN AM. CONSENT SIGNED. HEPARIN AT 14ML/HR RECHECK LEVEL IN AM. TELE SR. BS 113 NOT NEEDED TO TX. PM MEDS GIVEN. PLAN OF CARE DISCUSSED. NEEDS MET
[2020-12-13] VITALS (192 sets, daily range): BP systolic 114–183; BP diastolic 68–91; PULSE 55–76; TEMP 79.8–98.1; O2SAT 88–100
--- NOTE | 2020-12-13 04:59 | NUR ---
RESTED THROUGH THE NIGHT WITHOUT INCIDENT. DID HAVE TO TX BP W HYDRLOSINE AND GAVE TYL FOR HEADACHE OVERNIGHT. HEPARIN DRIP CONT TO RUN PER ORDER. NEEDS MET.
[2020-12-13 06:45] LABS: BASO % 0.5 % (0.0-2.0); EOS # 0.1 (0.0-0.7); EOS % 1.8 % (0-4.0); GRAN # 2.8 (1.4-6.5); GRAN % 62.3 % (42.2-75.2); LYMPH # 1.1 (1.2-3.4); LYMPH % 24.5 % (20.0-51.0); MEAN CELL VOLUME 95 fl (80.0-100.0); MEAN CORPUSCULAR HGB CONC 31 g/dl (33.0-37.0); MEAN PLATELET VOLUME 10.3 fl (7.4-10.4); MONO # 0.5 (0.1-0.6); MONO % 10.2 % (1.7-9.3); PLATELET COUNT 125 K/mm3 (130-400); REDCELL DISTRIBUTION WIDTH-CV 15.7 % (11.5-14.5)
[2020-12-13 06:49] LABS: HEMATOCRIT 29.5 % (42.0-52.0); MEAN CORPUSCULAR HEMOGLOBIN 29 pg (27.0-31.0)
[2020-12-13 06:52] LABS: INR 1.1 (0.8-3.0); PROTHROMBIN TIME 12.4 SECONDS (9.7-12.8)
[2020-12-13 06:54] LABS: ALBUMIN 3.6 gm/dL (3.5-5.0); CALCIUM 7.3 mg/dL (8.4-10.2); CREATININE, serum 4.85 (0.66-1.25); PHOSPHOROUS 4.5 mg/dL (2.5-4.5); POTASSIUM 5.5 mmol/L (3.4-5.0)
[2020-12-13 06:54] LABS: PARTIAL THROMBOPLASTIN TIME 94.7 SECONDS (26.0-37.0)
--- NOTE | 2020-12-13 08:40 | NUR ---
HepXa 0.42, decrease by 100 units/ hr or 1 ml/ hr, new rate of 13ml/hr, recheck in 6 hours @ 1500
--- NOTE | 2020-12-13 12:57 | NUR ---
Primary nurse was assisted with [phone] patient care by [employer] ADN student Kimber Arrington and [facility] instructor Arlin Chawla MSN, RN.
--- NOTE | 2020-12-13 16:06 | NUR ---
SW notified the RN and CLINICAL SERVICES CONSULTANT with Dr. Parham that the patient would like home health services upon discharge and he would need home health orders upon discharge.
[2020-12-13 16:33] LABS: HEMATOCRIT 29.8 % (42.0-52.0)
--- NOTE | 2020-12-13 17:38 | NUR ---
Returned from entry level lab technician. Groin site assessed with entry level lab technician nurse. Hematoma in left groin noted from lower abdomen to mid thigh. Area wrapped tightly in colt wrap. Left in place at this time. Pedal pulses +2. Reports pain in thigh as a 4/10. Patient alert and oriented and slightly drowsy. VS stable at this time.
--- NOTE | 2020-12-13 17:58 | NUR ---
Updated Dr. Parham on patient status. Will be into unit to see patient shortly.
[2020-12-13 21:09] LABS: BASO % 0.4 % (0.0-2.0); EOS # 0.1 (0.0-0.7); EOS % 1.2 % (0-4.0); GRAN # 5.4 (1.4-6.5); GRAN % 74.9 % (42.2-75.2); LYMPH % 13.6 % (20.0-51.0); MEAN CELL VOLUME 97 fl (80.0-100.0); MEAN CORPUSCULAR HGB CONC 30 g/dl (33.0-37.0); MONO # 0.7 (0.1-0.6); MONO % 9.3 % (1.7-9.3); PLATELET COUNT 146 K/mm3 (130-400); RED BLOOD COUNT 2.81 M/mm3 (4.20-5.60); REDCELL DISTRIBUTION WIDTH-CV 15.8 % (11.5-14.5)
[2020-12-13 21:10] LABS: HEMATOCRIT 27.2 % (42.0-52.0); HEMOGLOBIN 8.2 g/dl (13.5-18.0); MEAN CORPUSCULAR HEMOGLOBIN 29 pg (27.0-31.0)
--- NOTE | 2020-12-13 21:15 | NUR ---
Bedside shift report was conducted. Yoon BENITEZ and I viewed patient's bilateral femoral sites. The right femoral site is clean, dry and intact. The left side femoral is slighly bleeding (about 1 drop of blood an hour) and is wrapped very tightly. The patient started complaining of severe pain around 2100. Labs were drawn and his hemoglobin decreased from 9.0 to 8.2. I called Dr Parham for his reccomendation and he requested we transfuse 1 unit of blood. I also called Dr King because I saw a heprin gtt order for midnight. He confirmed to hold the heprin gtt and to start a nitro gtt and keep the blood pressure between 110 and 120 systolic. He also suggested to give the patient fentanyl for pain. His vitals has significantly imporved. His pain is now a 2/10.
[2020-12-14] VITALS (950 sets, daily range): BP systolic 114–148; BP diastolic 63–87; PULSE 60–68; TEMP 97.8–99; O2SAT 87–100
--- NOTE | 2020-12-14 02:11 | NUR ---
Blood product finished around 1am. Still on the nitro gtt and titrating upwards. Currently on 35 mcg/min. He has no further complaints.
[2020-12-14 04:32] LABS: BASO % 0.5 % (0.0-2.0); EOS # 0.1 (0.0-0.7); EOS % 1.3 % (0-4.0); GRAN # 4.2 (1.4-6.5); GRAN % 68.5 % (42.2-75.2); LYMPH # 1.1 (1.2-3.4); LYMPH % 18.2 % (20.0-51.0); MEAN CELL VOLUME 94 fl (80.0-100.0); MEAN CORPUSCULAR HGB CONC 31 g/dl (33.0-37.0); MEAN PLATELET VOLUME 9.9 fl (7.4-10.4); MONO # 0.7 (0.1-0.6); MONO % 11.2 % (1.7-9.3); PLATELET COUNT 135 K/mm3 (130-400); RED BLOOD COUNT 2.77 M/mm3 (4.20-5.60); REDCELL DISTRIBUTION WIDTH-CV 15.7 % (11.5-14.5)
[2020-12-14 04:33] LABS: HEMATOCRIT 26.1 % (42.0-52.0); HEMOGLOBIN 8.2 g/dl (13.5-18.0); MEAN CORPUSCULAR HEMOGLOBIN 30 pg (27.0-31.0)
[2020-12-14 04:42] LABS: ALBUMIN 3.2 gm/dL (3.5-5.0); CREATININE, serum 4.75 (0.66-1.25); PHOSPHOROUS 4.9 mg/dL (2.5-4.5); POTASSIUM 5.6 mmol/L (3.4-5.0)
--- NOTE | 2020-12-14 07:00 | NUR ---
REPORT RECEIVED FROM NEFTALI. PT RESTING IN BED. PT HAS NITRO DRIP RUNNING. PT HAS PRESSURE DRESSING APPLIED TO LEFT UPPER THIGH. DRESSING C/D/I. LEG SOFT. PULSES PALPABLE. VSS. WILL CONTINUE TO MONITOR.
--- NOTE | 2020-12-14 11:14 | NUR ---
bedside and assessed Pt's groin sites and hematoma. does not want us to graves to dc nitro at this time. Will continue to monitor and wean as able.
--- NOTE | 2020-12-14 13:02 | NUR ---
Patient was admitted to ICU after heart cath due to hematoma. Patient will not discharge today. There are no new needs at this time. Social work will continue to follow.
--- NOTE | 2020-12-14 19:58 | NUR ---
PATIENT LYING CALM AND RELAXED, COMPLAINS OF TOLERABLE PAIN IN LEFT GROIN, 3/10.
[2020-12-15] VITALS (1408 sets, daily range): BP systolic 108–154; BP diastolic 63–82; PULSE 59–69; TEMP 97.9–98.1; O2SAT 72–100
--- NOTE | 2020-12-15 07:00 | NUR ---
REPORT RECIEVED FROM GENEVA BENITEZ, ALL QUESTIONS ANSWERED. PATIENT FOUND LYING IN BED, AWAKE ALERT X4. HEART SOUNDS REGULAR, LUNG SOUNDS CLEAR, BOWEL SOUNDS ACTIVE. BLOOD SUGAR 107. FISTULA ASSESED ON LEFT ARM. IV'S INFUSING WITHOUT DIFFICULTY. NITRO DRIP RUNNING AT 25MCG, VITAL SIGNS STABLE. PEDAL PULSES PRESENT. SWELLING AND BRUISING NOTED TO SCROTUM. DIFFUSE BRUISING AND OLD BLOODY DRIANAGE FOUND ON LEFT GROIN, FITZ BANDAGE IN PLACE. RIGHT GROIN WITH SMALL AMOUNT OF BRUISING, NO DRAINAGE NOTED. CALL SANCHEZ WITHIN REACH, ALL SAFETY MAINTAINED, WILL CONTINUE TO MONITOR.
[2020-12-15 10:14] LABS: MEAN CELL VOLUME 93 fl (80.0-100.0); MEAN CORPUSCULAR HGB CONC 31 g/dl (33.0-37.0); MEAN PLATELET VOLUME 9.9 fl (7.4-10.4); PLATELET COUNT 114 K/mm3 (130-400); RED BLOOD COUNT 2.54 M/mm3 (4.20-5.60); REDCELL DISTRIBUTION WIDTH-CV 15.8 % (11.5-14.5)
[2020-12-15 10:15] LABS: HEMATOCRIT 23.5 % (42.0-52.0); HEMOGLOBIN 7.3 g/dl (13.5-18.0); MEAN CORPUSCULAR HEMOGLOBIN 29 pg (27.0-31.0)
[2020-12-15 10:24] LABS: CALCIUM 7.2 mg/dL (8.4-10.2); CREATININE, serum 4.48 (0.66-1.25); POTASSIUM 5.1 mmol/L (3.4-5.0)
--- NOTE | 2020-12-15 10:30 | NUR ---
MD MADE AWARE OF SYSTOLIC PRESSURES BELOW 120'S. HOLD STAT DOSE OF NORVASC. TELEPHONE ORDERS TO DECREASE NORVASC TO 2.5MG BID. ORDER VERIFIED AND READ BACK.
--- NOTE | 2020-12-15 11:15 | NUR ---
MD MADE AWARE OF INCREASED SWELLING TO SCROTUM, STATES TO ELEVATE AND APPLY ICE. SPEAK TO SERA ABOUT POSSIBLY NEEDING HERNANDEZ. WILL MADE SERA AWARE. WILL CONTINUE TO MONITOR.
--- NOTE | 2020-12-15 12:00 | NUR ---
PER DR. ZAMORA DISCONTINUE IV FLUIDS. ORDERS READ BACK AND CONFIRMED.
--- NOTE | 2020-12-15 17:14 | NUR ---
SCROTUM CONTINUES TO BE SWOLLEN, SOFT, DOES NOT APPEAR TO BE A HEMATOMA. PAITENT COMPLAIN OF PAIN OF 3/10 TO LEFT GROIN. WILL CONTINUE TO MONITOR.
--- NOTE | 2020-12-15 18:00 | NUR ---
PATIENT COMPLAINS OF PAIN OF 5/10 TO LEFT GROIN. MEDICATION GIVEN PER ORDERS.
--- NOTE | 2020-12-15 20:00 | NUR ---
Assessment complete. Pt is AXO X3, states he has pain to his L groin/cath site rated at a 5/10. Pt repositioned in bed. Pt is now sitting up in the bed watching TV at this time and he denies further needs. Call light within reach.
[2020-12-16] VITALS (610 sets, daily range): BP systolic 116–141; BP diastolic 54–82; PULSE 60–64; TEMP 97.8–98.6; O2SAT 58–100
--- NOTE | 2020-12-16 07:21 | NUR ---
Report recieved from EMMANUEL Pat.
--- NOTE | 2020-12-16 07:30 | NUR ---
Dr. Becker paged. Patient has not been out of bed since procedure. Order recieved to allow patient to get up into chair. Reviewed blood pressure of 141/76. Dr. Becker is Ok with that pressure at this time. Also reviewed status of left groin. Able to remove colt wrap. No other changes at this time
--- NOTE | 2020-12-16 08:19 | NUR ---
Dr. Parham called for oral pain medications as patient has been taking Fentanyl throughout the weekend. New order recieved for Percocet 5mg q 4 hours PRN
[2020-12-16 08:33] LABS: BASO % 0.3 % (0.0-2.0); EOS # 0.1 (0.0-0.7); EOS % 2.3 % (0-4.0); GRAN % 65.5 % (42.2-75.2); LYMPH # 1.2 (1.2-3.4); LYMPH % 19.6 % (20.0-51.0); MEAN CELL VOLUME 92 fl (80.0-100.0); MEAN CORPUSCULAR HGB CONC 32 g/dl (33.0-37.0); MEAN PLATELET VOLUME 10.2 fl (7.4-10.4); MONO # 0.7 (0.1-0.6); MONO % 11.2 % (1.7-9.3); PLATELET COUNT 121 K/mm3 (130-400); RED BLOOD COUNT 2.68 M/mm3 (4.20-5.60); REDCELL DISTRIBUTION WIDTH-CV 15.8 % (11.5-14.5)
--- NOTE | 2020-12-16 08:34 | NUR ---
Patient resting in bed when this nurse arrived. After speaking with Dr. Becker. Patient allowed up to chair this AM. Able to get up to chair without any difficulty. Patient is alert and oriented x 3. Verbalizes c/o pain in the left groin. States 6/10 at this time. Is asking for Fentanyl. Explained to patient that this should be changed to oral pain medication as he is unable to go home on IV pain medications. He is resistant but agreeable. Skin w/d. Color pale pink. Lungs CTA with resp and unlabored. Patient sats greater than 98%. With 02 off patient 02 sats 98%. Will continue to monitor for any changes with 02 sats. HR strong/regular. Abd soft/non-tender. BS x 4 quads. Patient reports that he is passing gas. Left groin site is bruised; tender to touch; soft in nature. At insertion site there is a small hardened area. Kris wrap removed from patient after discussion with Dr. Becker. Scrotal area swollen and bruised. PPP. No pedal edema. Blood sugar checked - 100. No insulin coverage required at this time. Patient has no other needs at this time. Is eating breakfast. Lab in to draw AM labs. PT here and will revisit patient after he is done eating. No other needs
[2020-12-16 08:35] LABS: HEMATOCRIT 24.7 % (42.0-52.0); MEAN CORPUSCULAR HEMOGLOBIN 30 pg (27.0-31.0)
[2020-12-16 08:46] LABS: CALCIUM 7.4 mg/dL (8.4-10.2); CREATININE, serum 4.68 (0.66-1.25); POTASSIUM 5.2 mmol/L (3.4-5.0)
--- NOTE | 2020-12-16 11:20 | NUR ---
Dr. Parham here to see patient. Orders recieved to transfer patient to the floor.
--- NOTE | 2020-12-16 12:16 | NUR ---
Assisted patient with elevation of scrotum. Applied ice at this time. Patient states that is soothing. States pain is 3/10. Would like pain medication when available. Denies any other needs. Set up lunch tray. patient remains up in chair; watching TV.
--- NOTE | 2020-12-16 13:47 | NUR ---
Call placed to Dr. Parham. He had told this nurse and the patient he could be transfered to the medical floor today. Dr. Parham, stated that he thought he put orders in for the patient. The patient can be transferred to floor continuing all orders; no telemetry; continue all medications
--- NOTE | 2020-12-16 15:30 | NUR ---
Report given to Tameka Lackey RN. Questions answered. Patient transferred to Room 317 via w/c. Patient settled in room. Bedside report and observation of groin sites done with this nurse. Patient given a glass of water. Call light and phone in place. Patient has no other needs at this time
--- NOTE | 2020-12-16 15:40 | NUR ---
Pt arrived to the floor from ICU. He is alert and oriented with some pain complaints to his left groin. Ice pack provided per his request. INT x2 to right arm, both flush well. Left restricted extremity bracelet on. Pt did ambulate to his bed from the hallway. He did well, just needed a little assistance to stand. Oriented pt to his room, gave fresh ice water, call light within reach
--- NOTE | 2020-12-16 16:20 | NUR ---
@ 1600 Dr. Ellison called to tell patient that he would have a heart cath at 0830 in the AM. Upon arriving at patients room to have consent signed; patient did not completely understand the procedure. Reviewed procedure with patient. Questions answered. He verbalized understanding at this time. Written education provided for patient and his . No other questions at this time. Consent was signed. Rapid COVID test done per facility policy. Patient tolerated well. No other needs
--- NOTE | 2020-12-16 21:46 | NUR ---
ALERT AND OX4. RATES PAIN 4/10 TO GROIN. ICE PACKS REFRESHED. PERC ON BOARD AND HELPING. SCD ON. PM MEDS AND PRN MEDS GIVEN/DISCUSSED. RT WRIST/FA, INT FLUSHED. HEMOTOMA TO LT GROIN BRUSIED AND SWOLLEN ALONG W TESTICULAR SWELLING NOTED. POC DISCUSSED. ANTCIPATE DC TOMORROW. NEEDS MET.
[2020-12-17 03:32] VITALS: BP 139/66; PULSE 63; TEMP 98.5
--- NOTE | 2020-12-17 05:55 | NUR ---
RESTED THROUGH THE NIGHT WITHOUT INCIDENT. NEEDS MET.
[2020-12-17 07:32] VITALS: BP 118/65; PULSE 62; TEMP 97.1
--- NOTE | 2020-12-17 08:00 | NUR ---
Patient resting in bed at this time. Patient is alert and oriented, answers questions appropriately. Hematoma to left groin present but does not appear to have grown. Patient denies pain or needs at this time, call light within reach.
[2020-12-17 11:24] VITALS: BP 116/66; PULSE 60; TEMP 98
[2020-12-17] MEDS ORDERED: PLAVIX 75MG TAB75 MG PO (11:33)
[2020-12-17] MEDS ORDERED: NORVASC 5MG5 MG/TAB PO (11:34)
[2020-12-17] MEDS ORDERED: PERCOCET 325 MG1 TA2 PO (11:35)
[2020-12-17] MEDS ORDERED: PRINIVIL10 MG PO (11:37)
--- NOTE | 2020-12-17 12:53 | NUR ---
Patient to discharge home today with [facility]. Doll Eye Setter contacted Viktoriya at [facility] and faxed discharge orders.
--- NOTE | 2020-12-17 14:55 | NUR ---
Discharge teaching completed. Discussed follow up appointments, discharge medications, and discharge instrucions. Patient verbalized understanding. Two IVs were removed, catheters intact, hemostasis achieved. Patient dressed and confirmed all personal belongings were gathered. Patient was escorted to ED entrance where he entered a private vehicle.
== END 2020-12-17 14:55 | disposition home health service (06) | DRG 251 ==
LOC: COL.ER 19:47 → MEDICAL 21:44 → ICU 12-13 16:21 → MEDICAL 12-16 15:45
PROVIDERS: Internal Medicine Cardiovascular Disease; Internal Medicine Interventional Cardiology; Nurse Practitioner; ADMIT Internal Medicine Nephrology
PROC: 4A023N7 Measurement of Cardiac Sampling and Pressure, Left Heart, Percutaneous Approach (ICD-10-PCS; 2020-12-10)
PROC: B2111ZZ Fluoroscopy of Multiple Coronary Arteries using Low Osmolar Contrast (ICD-10-PCS; 2020-12-10)
PROC: 047K3ZZ Dilation of Right Femoral Artery, Percutaneous Approach (ICD-10-PCS; principal; 2020-12-13)
PROC: 02703ZZ Dilation of Coronary Artery, One Artery, Percutaneous Approach (ICD-10-PCS; 2020-12-13)
PROC: B2101ZZ Fluoroscopy of Single Coronary Artery using Low Osmolar Contrast (ICD-10-PCS; 2020-12-13)
DX: I48.0 Paroxysmal atrial fibrillation (principal); Z94.0 Kidney transplant status; N18.5 Chronic kidney disease, stage 5; I13.11 Hypertensive heart and chronic kidney disease without heart failure, with stage 5 chronic kidney disease, or end stage renal disease; E87.2 Acidosis; L76.32 Postprocedural hematoma of skin and subcutaneous tissue following other procedure; N25.81 Secondary hyperparathyroidism of renal origin; I16.0 Hypertensive urgency; E11.40 Type 2 diabetes mellitus with diabetic neuropathy, unspecified; Z20.822 Contact with and (suspected) exposure to COVID-19; E11.22 Type 2 diabetes mellitus with diabetic chronic kidney disease; I25.10 Atherosclerotic heart disease of native coronary artery without angina pectoris; K21.9 Gastro-esophageal reflux disease without esophagitis; G47.30 Sleep apnea, unspecified; F32.9 Major depressive disorder, single episode, unspecified; D63.1 Anemia in chronic kidney disease; R80.9 Proteinuria, unspecified; E66.9 Obesity, unspecified; E78.5 Hyperlipidemia, unspecified; F41.9 Anxiety disorder, unspecified; Z68.39 Body mass index [BMI] 39.0-39.9, adult; Y84.0 Cardiac catheterization as the cause of abnormal reaction of the patient, or of later complication, without mention of misadventure at the time of the procedure; Y92.234 Operating room of hospital as the place of occurrence of the external cause; Z79.82 Long term (current) use of aspirin; Z79.4 Long term (current) use of insulin; Z88.0 Allergy status to penicillin; Z88.1 Allergy status to other antibiotic agents; Z88.8 Allergy status to other drugs, medicaments and biological substances; Z95.5 Presence of coronary angioplasty implant and graft; Z87.891 Personal history of nicotine dependence
CPT/HCPCS: C1725; C1760; C1769; C1887; C1894; J0583; J1644; J1815; J1940; J2250; J2916; J3010; J7507; J7512; J7517; P9016; Q5106; Q9967

== ENCOUNTER → 2020-12-24 | Outpatient (CLI) | payer MEDICARE, MEDICAID ==
[~2020-12-24] MED LIST changes: +COMBIGAN 0.2%-0.5 ML OU; +LEVAQUIN 5500 MG/TA1 PO; +NOVOLIN N100 UNIT/1 SQ; +PERCOCET 325 MG1 TA2 PO; +PRINIVIL10 MG PO; +PRINIVIL20 MG PO; +VELTASSA8.4 GM PO
== END ==
LOC: COL.VAS 11:30
DX: S30.1XXD Contusion of abdominal wall, subsequent encounter (principal); M79.605 Pain in left leg

== ENCOUNTER 2021-03-12 15:08 | Inpatient (IN) | payer MEDICARE, MEDICAID ==
[~2021-03-12] VITALS: Ht 165.1 cm; Wt 105.9 kg
[~2021-03-12 15:08] MED LIST changes: -LEVAQUIN 5500 MG/TA1 PO; -PRINIVIL20 MG PO; -VELTASSA8.4 GM PO
[2021-03-12 15:30] LABS: BASO % 0.3 % (0.0-2.0); EOS # 0.1 (0.0-0.7); EOS % 0.7 % (0-4.0); GRAN # 5.4 (1.4-6.5); GRAN % 74.5 % (42.2-75.2); HEMATOCRIT 33.1 % (42.0-52.0); HEMOGLOBIN 9.9 g/dl (13.5-18.0); LYMPH # 0.9 (1.2-3.4); LYMPH % 12.2 % (20.0-51.0); MEAN CELL VOLUME 96 fl (80.0-100.0); MEAN CORPUSCULAR HEMOGLOBIN 29 pg (27.0-31.0); MEAN CORPUSCULAR HGB CONC 30 g/dl (33.0-37.0); MEAN PLATELET VOLUME 10.3 fl (7.4-10.4); MONO # 0.8 (0.1-0.6); MONO % 11.3 % (1.7-9.3); PLATELET COUNT 160 K/mm3 (130-400); RED BLOOD COUNT 3.44 M/mm3 (4.20-5.60); REDCELL DISTRIBUTION WIDTH-CV 16.7 % (11.5-14.5)
[2021-03-12 16:07] LABS: ALBUMIN 4.1 gm/dL (3.5-5.0); BILIRUBIN,TOTAL 0.5 mg/dL (0.0-1.0); CALCIUM 8.7 mg/dL (8.4-10.2); CREATININE, serum 4.22 (0.66-1.25); POTASSIUM 5.6 mmol/L (3.4-5.0); TOTAL PROTEIN 7.2 gm/dL (6.4-8.2)
[2021-03-12 16:33] LABS: C-REACTIVE PROTEIN 23.7 mg/dL (0.0-0.9)
[2021-03-12 16:35] LABS: COLLECTION METHOD CLEAN CATCH
[2021-03-12 16:41] LABS: MUCOUS Present /lpf; PH 5 (5-8); SQUAMOUS EPITHELIAL 0-2 /hpf; URINE APPEARANCE Hazy; URINE BACTERIA Rare /hpf; URINE BILIRUBIN Negative (NEGATIVE); URINE BLOOD 1+ (NEGATIVE); URINE COLOR Yellow; URINE GLUCOSE 3+ (NEGATIVE); URINE KETONE Trace (NEGATIVE); URINE LEUKOCYTE ESTERASE Negative (NEGATIVE); URINE NITRATE Negative (NEGATIVE); URINE PROTEIN(semi-quant) 3+ (NEGATIVE); URINE RBC 0-2 /hpf; URINE UROBILINOGEN Negative (NEGATIVE)
[2021-03-12] MEDS ORDERED: PRINIVIL20 MG PO (20:09)
[2021-03-12] MEDS ORDERED: VELTASSA8.4 GM PO (20:15)
[2021-03-12] MEDS ORDERED: NORVASC 10MG10 MG PO (20:15)
[2021-03-12 21:55] VITALS: BP 120/81; PULSE 99; TEMP 98.4
[2021-03-13 00:46] VITALS: BP 105/62; PULSE 86; TEMP 98.2
[2021-03-13 04:34] VITALS: BP 129/75; PULSE 85; TEMP 97.6
[2021-03-13 08:33] VITALS: BP 110/74; PULSE 115; TEMP 97.7
[2021-03-13 08:40] LABS: CALCIUM 8.5 mg/dL (8.4-10.2); CREATININE, serum 4.07 (0.66-1.25); POTASSIUM 5.7 mmol/L (3.4-5.0)
--- NOTE | 2021-03-13 09:00 | NUR ---
SW met with the patient to discuss discharge plan. The patient lives in [place] with his sister, Courtney Nava (ph#[phone]). He reports independence with ADLs and has a cane and walker. The patient's PCP is Dr. Delfina Gonzalez and he receives his medications from [facility]. He reports no difficulties obtaining his meds. The patient's DPOA-HC is in EMR and it designates his sister, Courtney. The patient plans to return home with his sister upon discharge. SW addressed home health services. The patient reports that he does not have home health and does not need it at this time. The patient is currently on 4 liters of oxygen. SW to continue to monitor. *Discharge plan: home with sister*
--- NOTE | 2021-03-13 10:42 | NUR ---
Initial visit; Patient thanked Video Game Engineer for looking in on him, offering God's blessings and wishing him well.
[2021-03-13 12:02] VITALS: BP 117/69; PULSE 82; TEMP 98
--- NOTE | 2021-03-13 14:20 | NUR ---
Pt assessment completed and charted, meds administered per oct. Pt A&O, on 3L NC, c/o SOB. Pt denies pain, N/V/D, chest pain, or abd pain. Pt denies further needs. Pt independent in room. pt on fluid restriction and verbalizes understanding.
[2021-03-13 16:00] VITALS: BP 115/73; PULSE 85; TEMP 98.2
--- NOTE | 2021-03-13 20:00 | NUR ---
Assessment complete. Patient is alert and oriented with no complaints of pain. He is currently on 3 liters 02 via nasal cannula and only complains of becoming "winded" after walking back from the bathroom. Lung sounds are clear in upper lobes with fine crackles in bases. Left forearm fistula is present with bruit and thrill. No new concerns. Call light in reach.
[2021-03-13 20:48] VITALS: BP 119/70; PULSE 64; TEMP 98.5
[2021-03-14 04:51] VITALS: BP 123/57; PULSE 73; TEMP 97.9
[2021-03-14 07:09] LABS: MEAN CELL VOLUME 96 fl (80.0-100.0); MEAN CORPUSCULAR HGB CONC 30 g/dl (33.0-37.0); MEAN PLATELET VOLUME 10.1 fl (7.4-10.4); PLATELET COUNT 151 K/mm3 (130-400); RED BLOOD COUNT 2.81 M/mm3 (4.20-5.60); REDCELL DISTRIBUTION WIDTH-CV 15.9 % (11.5-14.5)
[2021-03-14 07:12] LABS: ALBUMIN 3.2 gm/dL (3.5-5.0); CALCIUM 8.6 mg/dL (8.4-10.2); CREATININE, serum 4.51 (0.66-1.25); HEMOGLOBIN 8.1 g/dl (13.5-18.0); MEAN CORPUSCULAR HEMOGLOBIN 29 pg (27.0-31.0); POTASSIUM 5.7 mmol/L (3.4-5.0)
[2021-03-14 07:34] VITALS: BP 144/73; PULSE 61; TEMP 97.6
--- NOTE | 2021-03-14 08:00 | NUR ---
Patient laying in bed, A&Ox3. Patient is wanting answers on plan of care for today. Nurse informed the patient that waiting on doctors to round and will notify when able. Patient verbalized an understanding. VSS 4L NC O2. IV CDI. Fistula site CDI. Left arm restricted. Denies pain and discomfort. Patient NPO pending possible procedure. Patient independent in the room. No further needs expressed from the patient. Call light within reach
[2021-03-14 08:03] LABS: BAND 1 % (0-10); EOSINOPHIL 2 % (0-4); LYMPHOCYTE 17 % (20.0-51.0); METAMYELOCYTE 5 % (0-0); NEUTROPHILS 72 % (42.0-75.2)
[2021-03-14 08:04] LABS: ANISOCYTOSIS 1+; OVALOCYTES 1+; PLATELET ESTIMATE NORMAL (NORMAL)
[2021-03-14 08:06] LABS: TEAR DROP CELLS 1+
[2021-03-14 11:43] VITALS: BP 120/66; PULSE 58; TEMP 97.9
[2021-03-14 16:28] VITALS: BP 108/62; PULSE 60; TEMP 98
--- NOTE | 2021-03-14 18:14 | NUR ---
Patient had an uneventful day. Was NPO for a possible procedure in the AM, but was not required. VSS 4L NC O2. IV CDI. Patient independent in the room. Denies pain and discomfort. No further needs expressed from the patient. Call light within reach
[2021-03-14 19:36] VITALS: BP 129/65; PULSE 59; TEMP 97.4
--- NOTE | 2021-03-14 20:00 | NUR ---
Assessment complete. Patient is alert and oriented with no complaints of pain. He wears 3 liters 02 and shows no signs of SOA at this time. He has a steady gait and has independent priveleges in his room. No edema is noted. HR is irregular with a rate in the 60's-70's. Lung sounds are clear with diminished bases. Comfort measures are provided and call light in reach. No new concerns, will continue to monitor.
[2021-03-14 23:55] VITALS: BP 131/66; PULSE 65; TEMP 98.2
[2021-03-15 04:32] VITALS: BP 155/68; PULSE 61; TEMP 98.2
[2021-03-15 07:25] VITALS: BP 122/55; PULSE 63; TEMP 98.4
[2021-03-15 07:33] LABS: MEAN CELL VOLUME 96 fl (80.0-100.0); MEAN CORPUSCULAR HGB CONC 30 g/dl (33.0-37.0); PLATELET COUNT 149 K/mm3 (130-400); RED BLOOD COUNT 2.84 M/mm3 (4.20-5.60); REDCELL DISTRIBUTION WIDTH-CV 15.9 % (11.5-14.5)
[2021-03-15 07:47] LABS: HEMATOCRIT 27.2 % (42.0-52.0); HEMOGLOBIN 8.1 g/dl (13.5-18.0); MEAN CORPUSCULAR HEMOGLOBIN 29 pg (27.0-31.0)
[2021-03-15 07:57] LABS: CREATININE, serum 4.41 (0.66-1.25); PHOSPHOROUS 5.4 mg/dL (2.5-4.5); POTASSIUM 5.5 mmol/L (3.4-5.0)
[2021-03-15 08:49] LABS: EOSINOPHIL 2 % (0-4); LYMPHOCYTE 21 % (20.0-51.0); METAMYELOCYTE 1 % (0-0); NEUTROPHILS 76 % (42.0-75.2); PLATELET ESTIMATE NORMAL (NORMAL)
[2021-03-15 08:51] LABS: OVALOCYTES 1+; SCHISTOCYTES 1+
[2021-03-15 08:52] LABS: ANISOCYTOSIS 1+; MICROCYTOSIS 1+
[2021-03-15 11:12] VITALS: BP 120/54; PULSE 62; TEMP 97.7
[2021-03-15] MEDS ORDERED: MYFORTIC180 MG PO (11:43)
[2021-03-15] MEDS ORDERED: PROGRAF 1MG1 MG PO (11:44)
[2021-03-15] MEDS ORDERED: LEVAQUIN 5500 MG/TA1 PO (11:45)
--- NOTE | 2021-03-15 15:11 | NUR ---
PT ESCORTED OUT OF DG VIA MEDICAL STAFF AT 1430. PT VERBALIZES DISCHARGE INSTRUCTIONS, PT INT DC'D, PT TELE DC'D. PT ESCORTED TO VEHICLE BY MEDICAL STAFF AND PT'S SISTER. ALL QUESTIONS ANSWERED. PT EXPRESSES NO ADDITIONAL NEEDS.
== END 2021-03-15 14:30 | disposition home or self-care (01) | DRG 194 ==
LOC: COL.ER 15:08 → MEDICAL 19:09
PROVIDERS: Emergency Medicine; Nurse Practitioner; ADMIT Internal Medicine Nephrology
DX: J18.9 Pneumonia, unspecified organism (principal); E87.2 Acidosis; N18.5 Chronic kidney disease, stage 5; Z94.0 Kidney transplant status; I13.2 Hypertensive heart and chronic kidney disease with heart failure and with stage 5 chronic kidney disease, or end stage renal disease; E87.5 Hyperkalemia; D64.9 Anemia, unspecified; E11.22 Type 2 diabetes mellitus with diabetic chronic kidney disease; R80.9 Proteinuria, unspecified; E11.65 Type 2 diabetes mellitus with hyperglycemia; R07.89 Other chest pain; Z20.822 Contact with and (suspected) exposure to COVID-19; I50.9 Heart failure, unspecified; E66.9 Obesity, unspecified; D63.1 Anemia in chronic kidney disease; E78.5 Hyperlipidemia, unspecified; M17.12 Unilateral primary osteoarthritis, left knee
CPT/HCPCS: J1650; J1815; J2185; J7040; J7507; J7512; J7517

== ENCOUNTER 2021-04-14 11:42 | Outpatient (RCR) | payer MEDICARE, MEDICAID ==
[~2021-04-14 11:42] MED LIST changes: +LEVAQUIN 5500 MG/TA1 PO; +PRINIVIL20 MG PO; +VELTASSA8.4 GM PO
== END 2021-04-15 | disposition home or self-care (01) ==
LOC: COL.CR
DX: Z48.812 Encounter for surgical aftercare following surgery on the circulatory system (principal); Z98.61 Coronary angioplasty status

== ENCOUNTER 2021-05-12 14:29 | Outpatient (RCR) | payer MEDICARE, MEDICAID ==
[2021-05-14] MEDS ORDERED: ZESTRIL 20MG TA20 MG PO (17:22)
[2021-05-19] MEDS ORDERED: ZESTRIL 20MG TA20 MG PO (10:45)
== END 2021-07-20 | disposition home or self-care (01) ==
LOC: COL.CR
DX: Z02.89 Encounter for other administrative examinations (principal)

== ENCOUNTER 2021-05-14 17:03 | Inpatient (IN) | payer MEDICARE, MEDICAID ==
[~2021-05-14] VITALS: Ht 165.1 cm; Wt 108.0 kg
[2021-05-14] MEDS ORDERED: ZESTRIL 20MG TA20 MG PO (17:22)
[2021-05-14 17:59] VITALS: BP 113/66; PULSE 71; TEMP 97.7
--- NOTE | 2021-05-14 18:00 | NUR ---
Pt arrived to medical unit room 319 at 1730. Oriented pt to room. Admission assessment and med rec completed. notified of pt's arrival and at bedside at this time. Pt placed on 2 lpm O2 by NC due to sats in mid 80s on RA. Denies pain or other concerns. 22 gauge IV stared to right AC and left upper extremity restriction in place. Continuing to monitor.
[2021-05-14 18:23] LABS: MEAN CELL VOLUME 101 fl (80.0-100.0); MEAN CORPUSCULAR HGB CONC 29 g/dl (33.0-37.0); MEAN PLATELET VOLUME 10.3 fl (7.4-10.4); PLATELET COUNT 142 K/mm3 (130-400); REDCELL DISTRIBUTION WIDTH-CV 17.8 % (11.5-14.5)
[2021-05-14 18:29] LABS: INR 1.2 (0.8-3.0); PROTHROMBIN TIME 13.2 SECONDS (9.7-12.8)
[2021-05-14 18:31] LABS: ALBUMIN 4.1 gm/dL (3.5-5.0); BILIRUBIN,TOTAL 0.4 mg/dL (0.0-1.0); CALCIUM 7.7 mg/dL (8.4-10.2); CREATININE, serum 5.48 (0.66-1.25); HEMATOCRIT 34.3 % (42.0-52.0); HEMOGLOBIN 9.8 g/dl (13.5-18.0); MAGNESIUM 1.4 mg/dL (1.6-2.3); MEAN CORPUSCULAR HEMOGLOBIN 29 pg (27.0-31.0); POTASSIUM 5.6 mmol/L (3.4-5.0); TOTAL PROTEIN 6.6 gm/dL (6.4-8.2)
[2021-05-14 19:05] LABS: BAND 2 % (0-10); EOSINOPHIL 2 % (0-4); LYMPHOCYTE 14 % (20.0-51.0); NEUTROPHILS 82 % (42.0-75.2); OVALOCYTES 1+; SCHISTOCYTES 1+
[2021-05-14 19:06] LABS: HYPOCHROMIA 3+
[2021-05-14 19:24] VITALS: BP 143/82; PULSE 87; TEMP 98.2
[2021-05-15 00:02] VITALS: BP 122/81; PULSE 78; TEMP 97.8
[2021-05-15 04:53] VITALS: BP 132/83; PULSE 59; TEMP 98
--- NOTE | 2021-05-15 05:04 | NUR ---
PT PLACED ON BIPAP, FI02 60 PERCENT. PT REQUIRES CONSTANT REMINDER TO KEEP MASK ON. BED ALARM ON. CALL LIGHT WITHIN REACH.
--- NOTE | 2021-05-15 05:34 | NUR ---
PT HAD UNEVENTFUL NIGHT, 02 3L NC, PT DENIES PAIN,N,V,D. ALL MEDICATIONS ADMINISTERED ORDERED. ALL NEEDS MET. CALL LIGHT WITHIN REACH.
[2021-05-15 07:08] LABS: ALBUMIN 3.7 gm/dL (3.5-5.0); CALCIUM 7.7 mg/dL (8.4-10.2); CREATININE, serum 5.47 (0.66-1.25); POTASSIUM 5.1 mmol/L (3.4-5.0)
[2021-05-15 08:16] VITALS: BP 122/63; PULSE 63; TEMP 98.4
--- NOTE | 2021-05-15 08:27 | NUR ---
Patient sitting on the edge of the bed eating breakfast upon entering the room. Patient has no complaints at this time. All morning medications administered with the exception of Novolog d/t BS being 73. This RN will retake the patient's BS around 0900 to see if the patient will recieve his Novolin N. Patient's bumex is running at 2mL/hr. Urinal is at bedside.
--- NOTE | 2021-05-15 10:16 | NUR ---
First visit from the rn advanced. Patient was sleeping so rn advanced prayed for patient while standing outside their door
[2021-05-15 10:33] LABS: PATHOLOGY DIFF REVIEW OK
--- NOTE | 2021-05-15 10:35 | NUR ---
SW met with patient at bedside to discuss discharge planning. Patient states he lives in the basement of his sister's house in [place]. Although there are several stairs, he reports he rarely goes up the stairs. Patient has a cane, a walker, shower chair, & raised toilet seat, all of which he utilizes daily. Otherwise, he is fairly independent. Patient is not on oxygen and his PCP is Delfina Gonzalez. He uses [facility] for his pharmaceutical needs and he expressed no difficulty in affording or obtaining them. Patient also shared that he had been discharged home with home health from the hospital and he stated that it was not a good experience. However, he could not recall which home health agency it was. *Discharge home with home health
[2021-05-15 11:42] VITALS: BP 131/65; PULSE 64; TEMP 98
[2021-05-15 16:49] VITALS: BP 125/62; PULSE 65; TEMP 97.9
--- NOTE | 2021-05-15 18:27 | NUR ---
Patient had kimble placed as ordered by SOLITARIO Osorio. Patient remains on bumex drip and is very pleasant.
[2021-05-15 19:54] VITALS: BP 148/81; PULSE 61; TEMP 97.9
--- NOTE | 2021-05-15 20:00 | NUR ---
Assessment complete. Patient alert and oriented with complaints of generalized "achiness"; PRN Tylenol provided. Pt wears 3 liters O2 and shows signs of dyspnea with exertion. No edema is noted. Bumex gtt infusing and kimble catheter in place, draining yellow/clear urine. HR normal/regular and lung sounds clear. Left forearm fistula has audible bruit and palpable thrill. No new concerns, will continue to monitor.
[2021-05-16 00:23] VITALS: BP 153/52; PULSE 58; TEMP 97.8
[2021-05-16 04:29] VITALS: BP 169/72; PULSE 62; TEMP 97.7
[2021-05-16 07:33] LABS: ALBUMIN 3.1 gm/dL (3.5-5.0); CREATININE, serum 5.53 mg/dL (0.72-1.25); PHOSPHOROUS 5.5 mg/dL (2.3-4.7); POTASSIUM 5.3 mmol/L (3.5-4.5)
[2021-05-16 07:53] VITALS: BP 137/71; PULSE 61; TEMP 98
[2021-05-16 11:36] LABS: MEAN CELL VOLUME 97 fl (80.0-100.0); MEAN CORPUSCULAR HGB CONC 30 g/dl (33.0-37.0); MEAN PLATELET VOLUME 10.2 fl (7.4-10.4); PLATELET COUNT 125 K/mm3 (130-400); RED BLOOD COUNT 3.35 M/mm3 (4.20-5.60); REDCELL DISTRIBUTION WIDTH-CV 17.3 % (11.5-14.5)
[2021-05-16 11:40] LABS: HEMATOCRIT 32.4 % (42.0-52.0); HEMOGLOBIN 9.7 g/dl (13.5-18.0); MEAN CORPUSCULAR HEMOGLOBIN 29 pg (27.0-31.0)
[2021-05-16 11:57] LABS: BAND 7 % (0-10); LYMPHOCYTE 17 % (20.0-51.0); NEUTROPHILS 60 % (42.0-75.2)
[2021-05-16 11:58] LABS: HYPOCHROMIA 3+; OVALOCYTES 1+; PLATELET ESTIMATE DECREASED (NORMAL); SCHISTOCYTES 1+
[2021-05-16 12:30] VITALS: BP 154/76; PULSE 61; TEMP 97.9
--- NOTE | 2021-05-16 12:34 | NUR ---
Patient was on bedpan upon entering the room, he had a large soft BM. Patient was afraid to use the BSC or toilet d/t his kimble. Patient educated and encouraged to use the BSC and that nothing would happen to his kimble if he did so. Patient did c/o pain in his legs d/t edema.
--- NOTE | 2021-05-16 13:13 | NUR ---
ASSUMED CARE FROM EMMANUEL PEREZ. PT ASSISTED BACK TO BED, PT UNSTEADY ON FEET WITH CANE. PT HAS ORDERED LUNCH AND BUMEX DRIP INFUSING
--- NOTE | 2021-05-16 13:24 | NUR ---
TODD IN 150'S, CALLED SOLIT[facility]IT[facility] TO ADDRESS IF INSULIN SHOULD BE GIVEN WITH LOW SUGAR IN AM. ADORE ORDERED TO HOLD FOR NOW AND HAVE DR. COOK ASSESS INSULIN ADMINISTRATION ORDERS IN DIALYSIS LATER TODAY.
--- NOTE | 2021-05-16 18:04 | NUR ---
Patient back to room 319 from dialysis. A&Ox4. VSS 4L NC O2. No reported SOB. IV CDI. Fistula left forearm CDI. Denies pain and discomfort. Nurse assisted patient with 1xassist and gait belt back to bed. No further needs expressed. Call light within reach
[2021-05-16 18:13] VITALS: BP 188/95; PULSE 64; TEMP 97.9
--- NOTE | 2021-05-16 18:14 | NUR ---
PATIENT TOLERATED HD TX WITH 2.5L FLUID REMOVAL. NEXT TX PENDING ASSESSMENT & LABS.
[2021-05-16 20:46] VITALS: BP 168/75; PULSE 68; TEMP 98.8
[2021-05-17] VITALS (7 sets, daily range): BP systolic 141–174; BP diastolic 70–77; PULSE 59–66; TEMP 97.5–99
[2021-05-17 07:04] LABS: CALCIUM 8.2 mg/dL (8.4-10.2); CREATININE, serum 4.28 mg/dL (0.72-1.25); PHOSPHOROUS 4.4 mg/dL (2.3-4.7); POTASSIUM 4.7 mmol/L (3.5-4.5)
--- NOTE | 2021-05-17 23:11 | NUR ---
24 HR URINE SPECIMEN COLLECTION COMMENCED AT 2109. PT EDUCATED ON PURPOSE. COLLECTION DEVICE ON ICE WELL HERNANDEZ. ALL QUESIONS/CONCERNS ANSWERED.
--- NOTE | 2021-05-17 23:57 | NUR ---
BP SYSTOLIC >160, MEDICATION ADMINISTERED ORDERED.
[2021-05-18] VITALS (7 sets, daily range): BP systolic 142–170; BP diastolic 66–72; PULSE 59–80; TEMP 97.7–98.8
--- NOTE | 2021-05-18 06:11 | NUR ---
PT HAD UNEVENTFUL NIGHT, C/O PAIN TO BLE 6/10 MEDICATION ADMINISTERED ORDERED, 02 REMAINS 3L, PT DENIES SOA, N,V,D. ALL QUESTIONS ANSWERED, ALL NEEDS MET. CALL LIGHT WTIHIN REACH.
[2021-05-18 06:55] LABS: ALBUMIN 3.2 gm/dL (3.5-5.0); CALCIUM 8.3 mg/dL (8.4-10.2); CREATININE, serum 4.44 mg/dL (0.72-1.25); PHOSPHOROUS 4.7 mg/dL (2.3-4.7)
--- NOTE | 2021-05-18 07:57 | NUR ---
RECEIVED REPORT FROM EMMANUEL GONZALEZ. PT AWAKE/ALERT IN BED. DENIES PAIN. NO NEEDS AT THIS TIME. CALL SANCHEZ IN REACH
--- NOTE | 2021-05-18 18:06 | NUR ---
PT HAD UNEVENTFUL SHIFT. DENIES PAIN. NO NEEDS AT THIS TIME. CALL SANCHEZ IN REACH
--- NOTE | 2021-05-18 20:00 | NUR ---
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 Assessment complete. A&Ox3. Denies nausea/shortness of breath. States his legs have "aches" but this is normal for him and does not need intervention at this time. 24 hour urine collection in progress. VS remain stable. +2 BLE edema. Bumex infusing at 2ml/hr to right forearm IV. Plan of care discussed for this shift to include meds/DC of bumex at 2300/ending 24 hour urine collection/fluid restriction 1500/calling for questions/concerns. Verbalizes understanding/denies needs. Call light in reach. Will monitor.
--- NOTE | 2021-05-18 21:10 | NUR ---
24 hour urine collection copleted and taken to lab at this time.
[2021-05-18 21:44] LABS: CREATININE, serum 4.44 (0.66-1.25); URINE TOTAL VOLUME 2800 mL
[2021-05-19] VITALS (7 sets, daily range): BP systolic 135–180; BP diastolic 62–78; PULSE 56–84; TEMP 97.9–99.2
--- NOTE | 2021-05-19 02:33 | NUR ---
Called with c/o headache. Rating pain /10. States he gets headaches all the time. Tylenol given per dr order.
--- NOTE | 2021-05-19 05:53 | NUR ---
Patient had uneventful night. Bumex drip was DCd @2300. Fluid restriction enforced. 24 hour collection completed at 2100 and results given to Dialysis nurse. Denied shortness of breath/pain/nausea. VS remained stable. Call light in reach. Will monitor.
[2021-05-19 07:05] LABS: ALBUMIN 2.9 gm/dL (3.5-5.0); CALCIUM 7.9 mg/dL (8.4-10.2); CREATININE, serum 4.97 mg/dL (0.72-1.25)
--- NOTE | 2021-05-19 08:50 | NUR ---
PT PLEASANT, AOX4, PT STANDBY ASSIST TO BEDSIDE COMMODE, PT HAD LARGE SOFT FORMED BM, PT DENIES PAIN AT THIS TIME. PT ON 3L O2, PT ASSESSMENT PERFORMED, MEDICATIONS GIVEN, PT ATE 100% OF BREAKFAST, NO OTHER NEEDS AT THIS TIME
[2021-05-19] MEDS ORDERED: ZESTRIL 20MG TA20 MG PO (10:45)
--- NOTE | 2021-05-19 11:56 | NUR ---
DISCHARGE EDUCATION PROVIDED TO PT, NO QUESTIONS AT THIS TIME, IV SITE REMOVED, HERNANDEZ REMOVED W/O COMPLICATION, RT NOTIFIED OF EXERCISE OXIMETRY ORDER. NO OTHER NEEDS
--- NOTE | 2021-05-19 12:31 | NUR ---
SPO2 ASSESSES ON ROOM AIR WAS 84. AMBULATED AT OWN PACE WITH WALKER. APPROXIMATELY 100 FT WITH OXYGEN AT 2 LPM. SPO2 DECREASED TO 88 AT VERY END OF THAT DISTANCE. INCREASED TO 3 LPM AND AMBULATED X 50 FT LIMITED BY PATIENT FATIGUE. . SPO2 REMAINED AT 92%. BACK IN BED AT 2 LPM.
--- NOTE | 2021-05-19 13:40 | NUR ---
HARRY was informed by patient's RN that he will need 02 to d/c home. HARRY spoke with patient and he is ok with referral to [facility] home 02. HARRY to fax referral once dr signs order.
--- NOTE | 2021-05-19 17:32 | NUR ---
UNABLE TO GET A HOLD OF SOCIAL WORK OR [facility] TO CHECK OXYGEN STATUS. LEFT VOICEMAIL FOR DR. COOK NOTIFIYING HIM OF DELAY, NO RESPONSE AT THIS TIME. PT UPSET THAT HE HAS TO WAIT SO LONG. MEDICATIONS GIVEN AT DINNER TIME AND PT WANTS TO EAT HERE. NO OTHER NEEDS
--- NOTE | 2021-05-19 21:14 | NUR ---
PT BP ELEVATED, ROUTINE MEDICATIONS ADMINISTERED ORDERED.
--- NOTE | 2021-05-19 23:43 | NUR ---
UPON F/U PT'S BP REMAINS ELEVATED, THIS NURSE ADMINISTERED PRN MEDICATION ORDERED. NURSE WILL CONTINUE TO MONITOR.
[2021-05-20 03:49] VITALS: BP 145/79; PULSE 60; TEMP 98.3
--- NOTE | 2021-05-20 05:45 | NUR ---
pt remained on 2l nc overnight saturating 93-94 percent. all needs met. call light wtihin reach.
--- NOTE | 2021-05-20 08:22 | NUR ---
8:01 a.m. HARRY spoke with Elliot stallings [facility] regarding 02 order and they failed to receive the fax. This worker re-faxed the referral and followed up with a phone call and confirmed that they recd it. Spoke with Bruno and he will review and call me to confirm what time they will deliver. HARRY requested they expedite delivery for patient to d/c.
[2021-05-20 09:00] VITALS: BP 129/53; PULSE 58; TEMP 97.9
--- NOTE | 2021-05-20 11:05 | NUR ---
NO IV SITE, PT PLEASANT, AOX4, ASSESSMENT PERFORMED, MEDICATIONS GIVEN, PT DENIES PAIN, O2 ON PT AT 3L NC. VITALS REVIEWED, PT ATE 100% OF BREAKFAST. SOCIAL WORK ATTEMPTING TO OBTAIN OXYGEN FOR DISCHARGE. NO OTHER NEEDS
--- NOTE | 2021-05-20 11:39 | NUR ---
[facility] delivered 02 to patient in room at 11:30 a.m. for patient to discharge home.
--- NOTE | 2021-05-20 11:55 | NUR ---
PT DISHCARGED ONCE OXYGEN ARRIVED, WHEELED OUT WITH PT BELONGINGS. DISCHARGE EDUCATION PROVIDED PREVIOUS DAY, NO OTHER NEEDS
[2021-05-22 05:12] LABS: HEPATITIS B SURFACE ANTIBODY 4.1 (()); HEPATITIS B SURFACE ANTIGEN Negative (Negative); HEPATITIS C VIRUS ANTIBODY Negative (Negative)
== END 2021-05-20 11:55 | disposition home or self-care (01) | DRG 683 ==
LOC: MEDICAL 17:03
PROVIDERS: ADMIT Internal Medicine Nephrology
DX: N17.9 Acute kidney failure, unspecified (principal); I12.0 Hypertensive chronic kidney disease with stage 5 chronic kidney disease or end stage renal disease; Z94.0 Kidney transplant status; E87.70 Fluid overload, unspecified; N18.5 Chronic kidney disease, stage 5; E78.5 Hyperlipidemia, unspecified; E11.22 Type 2 diabetes mellitus with diabetic chronic kidney disease; F32.9 Major depressive disorder, single episode, unspecified; I48.91 Unspecified atrial fibrillation; I25.10 Atherosclerotic heart disease of native coronary artery without angina pectoris; K21.9 Gastro-esophageal reflux disease without esophagitis; M17.12 Unilateral primary osteoarthritis, left knee; E66.9 Obesity, unspecified; D63.1 Anemia in chronic kidney disease; E11.40 Type 2 diabetes mellitus with diabetic neuropathy, unspecified; Z79.82 Long term (current) use of aspirin; E87.5 Hyperkalemia
CPT/HCPCS: A4314; J1815; J7030; J7507; J7512; J7517

== ENCOUNTER 2021-08-12 15:17 | Inpatient (IN) | payer MEDICARE, MEDICAID ==
[~2021-08-12] VITALS: Ht 165.1 cm; Wt 102.9 kg
[~2021-08-12 15:17] MED LIST changes: +B-121000 MCG PO; +NATURE'S BLEND100 M2 PO; +RYTHMOL225 MG PO; +VTAMINC250TA PO
[2021-08-12 15:48] LABS: BASO % 0.6 % (0.0-2.0); EOS % 0.2 % (0.0-4.0); GRAN # 3.8 K/mm3 (1.4-6.5); GRAN % 71.8 % (42.2-75.2); LYMPH % 19.2 % (20.0-51.0); MEAN CELL VOLUME 86 fl (80.0-100.0); MEAN CORPUSCULAR HGB CONC 32 g/dl (33.0-37.0); MEAN PLATELET VOLUME 10.2 fl (7.4-10.4); MONO # 0.4 K/mm3 (0.1-0.6); MONO % 7.2 % (1.7-9.3); PLATELET COUNT 180 K/mm3 (130-400); RED BLOOD COUNT 2.55 M/mm3 (4.20-5.60)
[2021-08-12 15:49] LABS: MEAN CORPUSCULAR HEMOGLOBIN 27 pg (27-31)
[2021-08-12 16:21] LABS: ALKALINE PHOSPHATASE 134 U/L (40-150); ANION GAP 18 mmol/L (7-16); AST,SGOT 7 U/L (5-34); BILIRUBIN,TOTAL 0.8 mg/dL (0.2-1.2); BLOOD UREA NITROGEN 35 mg/dL (8-26); CALCIUM 7.9 mg/dL (8.4-10.2); CARBON DIOXIDE 20 mmol/L (23-31); CHLORIDE 100 mmol/L (98-107); CREATININE, serum 6.17 mg/dL (0.72-1.25); GLUCOSE 280 mg/dL (70-99); POTASSIUM 4.2 mmol/L (3.5-4.5); SODIUM 138 mmol/L (136-145); TOTAL PROTEIN 5.8 gm/dL (6.2-8.1)
[2021-08-12 16:46] LABS: ALANINE AMINOTRANSFERASE < 6 U/L (0-55)
[2021-08-12 16:47] LABS: TROPONIN-I 0.092 ng/mL (0.00-0.033)
[2021-08-12 17:25] VITALS: BP 96/62; PULSE 47; TEMP 98.2
[2021-08-12 17:44] VITALS: BP 102/59; PULSE 46; TEMP 98.5
[2021-08-12 20:00] VITALS: BP 113/67; PULSE 56; TEMP 97.6
[2021-08-12 21:17] VITALS: BP 113/67; PULSE 57; TEMP 97.6
[2021-08-12 23:36] LABS: HEMATOCRIT 23.6 % (42.0-52.0); HEMOGLOBIN 7.5 g/dl (13.5-18.0)
[2021-08-12 23:48] VITALS: BP 108/57; PULSE 57; TEMP 98.3
[2021-08-13] VITALS (13 sets, daily range): BP systolic 76–104; BP diastolic 41–62; PULSE 37–52; TEMP 97.5–98.2
[2021-08-13 06:50] LABS: BASO % 0.6 % (0.0-2.0); EOS % 0.6 % (0.0-4.0); GRAN % 57.5 % (42.2-75.2); HEMATOCRIT 21.9 % (42.0-52.0); LYMPH # 1.6 K/mm3 (1.2-3.4); LYMPH % 30.6 % (20.0-51.0); MEAN CELL VOLUME 86 fl (80.0-100.0); MEAN CORPUSCULAR HEMOGLOBIN 28 pg (27-31); MEAN CORPUSCULAR HGB CONC 32 g/dl (33.0-37.0); MONO # 0.5 K/mm3 (0.1-0.6); MONO % 9.4 % (1.7-9.3); PLATELET COUNT 154 K/mm3 (130-400); RED BLOOD COUNT 2.54 M/mm3 (4.20-5.60); REDCELL DISTRIBUTION WIDTH-CV 16.7 % (11.5-14.5)
[2021-08-13 07:09] LABS: CALCIUM 7.2 mg/dL (8.4-10.2); CREATININE, serum 6.61 mg/dL (0.72-1.25); MAGNESIUM 1.6 mg/dL (1.6-2.6); POTASSIUM 4.1 mmol/L (3.5-4.5)
[2021-08-13 08:04] LABS: IRON,SERUM 187 ug/dL (50-175)
[2021-08-13 09:21] LABS: COLLECTION METHOD CLEAN CATCH
[2021-08-13 09:38] LABS: PH 6 (5-8); SQUAMOUS EPITHELIAL 0-2 /hpf (0-10); URINE APPEARANCE Clear (CLEAR/HAZY); URINE BACTERIA Rare /hpf (NONE SEEN); URINE BILIRUBIN Negative (NEGATIVE); URINE BLOOD Negative (NEGATIVE); URINE COLOR Yellow (YELLOW); URINE GLUCOSE 2+ (NEGATIVE); URINE KETONE Negative (NEGATIVE); URINE LEUKOCYTE ESTERASE Negative (NEGATIVE); URINE NITRATE Negative (NEGATIVE); URINE PROTEIN(semi-quant) 2+ (NEGATIVE); URINE RBC 0-2 /hpf (0-2); URINE UROBILINOGEN Negative (NEGATIVE)
[2021-08-13 16:22] LABS: HEMATOCRIT 25.5 % (42.0-52.0); HEMOGLOBIN 8.1 g/dl (13.5-18.0)
[2021-08-14] VITALS (358 sets, daily range): BP systolic 105–173; BP diastolic 66–88; PULSE 43–77; TEMP 98–98.4; O2SAT 92–100
[2021-08-14 02:05] LABS: COLLECTION METHOD CATHETER
[2021-08-14 02:19] LABS: MUCOUS Present (NOT PRESENT); PH 5 (5-8); SQUAMOUS EPITHELIAL 0-2 /hpf (0-10); URINE APPEARANCE Cloudy (CLEAR/HAZY); URINE BACTERIA None Seen /hpf (NONE SEEN); URINE BILIRUBIN Negative (NEGATIVE); URINE BLOOD 1+ (NEGATIVE); URINE COLOR Yellow (YELLOW); URINE GLUCOSE 2+ (NEGATIVE); URINE KETONE Negative (NEGATIVE); URINE LEUKOCYTE ESTERASE Negative (NEGATIVE); URINE NITRATE Negative (NEGATIVE); URINE PROTEIN(semi-quant) 2+ (NEGATIVE); URINE RBC 0-2 /hpf (0-2); URINE UROBILINOGEN Negative (NEGATIVE)
[2021-08-14 04:38] LABS: BASO % 0.3 % (0.0-2.0); EOS % 0.2 % (0.0-4.0); GRAN % 68.4 % (42.2-75.2); LYMPH # 1.3 K/mm3 (1.2-3.4); LYMPH % 22.6 % (20.0-51.0); MEAN CELL VOLUME 90 fl (80.0-100.0); MEAN CORPUSCULAR HGB CONC 31 g/dl (33.0-37.0); MEAN PLATELET VOLUME 9.8 fl (7.4-10.4); MONO # 0.4 K/mm3 (0.1-0.6); MONO % 7.3 % (1.7-9.3); PLATELET COUNT 163 K/mm3 (130-400); RED BLOOD COUNT 2.65 M/mm3 (4.20-5.60); REDCELL DISTRIBUTION WIDTH-CV 16.4 % (11.5-14.5)
[2021-08-14 04:39] LABS: HEMATOCRIT 23.9 % (42.0-52.0); HEMOGLOBIN 7.5 g/dl (13.5-18.0); MEAN CORPUSCULAR HEMOGLOBIN 28 pg (27-31)
[2021-08-14 05:09] LABS: CALCIUM 6.8 mg/dL (8.4-10.2); CREATININE, serum 7.73 mg/dL (0.72-1.25); MAGNESIUM 1.7 mg/dL (1.6-2.6); POTASSIUM 4.7 mmol/L (3.5-4.5)
[2021-08-15] VITALS (25 sets, daily range): BP systolic 114–154; BP diastolic 72–84; PULSE 60–69; TEMP 98–98.6; O2SAT 68–92
[2021-08-15 04:50] LABS: BASO % 0.8 % (0.0-2.0); EOS # 0.1 K/mm3 (0.0-0.7); EOS % 1.3 % (0.0-4.0); GRAN # 2.4 K/mm3 (1.4-6.5); LYMPH # 1.1 K/mm3 (1.2-3.4); LYMPH % 26.8 % (20.0-51.0); MEAN CELL VOLUME 89 fl (80.0-100.0); MEAN CORPUSCULAR HGB CONC 31 g/dl (33.0-37.0); MEAN PLATELET VOLUME 9.9 fl (7.4-10.4); MONO # 0.4 K/mm3 (0.1-0.6); MONO % 9.6 % (1.7-9.3); PLATELET COUNT 154 K/mm3 (130-400); REDCELL DISTRIBUTION WIDTH-CV 15.9 % (11.5-14.5)
[2021-08-15 05:00] LABS: HEMATOCRIT 23.9 % (42.0-52.0); HEMOGLOBIN 7.5 g/dl (13.5-18.0); MEAN CORPUSCULAR HEMOGLOBIN 28 pg (27-31)
[2021-08-15 05:11] LABS: CALCIUM 7.3 mg/dL (8.4-10.2); CREATININE, serum 4.66 mg/dL (0.72-1.25); POTASSIUM 3.7 mmol/L (3.5-4.5)
[2021-08-15] MEDS ORDERED: RYTHMOL 15150 MG/TAB PO (13:29)
== END 2021-08-15 15:44 | disposition home or self-care (01) | DRG 811 ==
LOC: COL.ER 15:17 → MEDICAL 18:15 → ICU 08-13 17:16 → SURG 08-15 12:30
PROVIDERS: Internal Medicine; Physician Assistant; Student in an Organized Health Care Education/Training Program; ADMIT Internal Medicine
PROC: 05HY33Z Insertion of Infusion Device into Upper Vein, Percutaneous Approach (ICD-10-PCS; principal; 2021-08-13)
PROC: 5A1D70Z Performance of Urinary Filtration, Intermittent, Less than 6 Hours Per Day (ICD-10-PCS; 2021-08-15)
DX: D62 Acute posthemorrhagic anemia (principal); N18.6 End stage renal disease; I21.A1 Myocardial infarction type 2; Z94.0 Kidney transplant status; J96.11 Chronic respiratory failure with hypoxia; I12.0 Hypertensive chronic kidney disease with stage 5 chronic kidney disease or end stage renal disease; I95.2 Hypotension due to drugs; D63.1 Anemia in chronic kidney disease; I25.10 Atherosclerotic heart disease of native coronary artery without angina pectoris; E11.22 Type 2 diabetes mellitus with diabetic chronic kidney disease; E78.5 Hyperlipidemia, unspecified; G47.30 Sleep apnea, unspecified; F32.A Depression, unspecified; E21.3 Hyperparathyroidism, unspecified; M17.11 Unilateral primary osteoarthritis, right knee; G43.909 Migraine, unspecified, not intractable, without status migrainosus; E66.9 Obesity, unspecified; K21.9 Gastro-esophageal reflux disease without esophagitis; H40.9 Unspecified glaucoma; E11.40 Type 2 diabetes mellitus with diabetic neuropathy, unspecified; I48.91 Unspecified atrial fibrillation; E55.9 Vitamin D deficiency, unspecified; E11.319 Type 2 diabetes mellitus with unspecified diabetic retinopathy without macular edema; F41.9 Anxiety disorder, unspecified; T44.7X5A Adverse effect of beta-adrenoreceptor antagonists, initial encounter; E86.0 Dehydration; Z88.0 Allergy status to penicillin; Z99.2 Dependence on renal dialysis; Z79.82 Long term (current) use of aspirin; Z79.4 Long term (current) use of insulin; Z79.52 Long term (current) use of systemic steroids; Z86.718 Personal history of other venous thrombosis and embolism; Z20.822 Contact with and (suspected) exposure to COVID-19; Z23 Encounter for immunization
CPT/HCPCS: 99223-AI; 99233-AI; 99239; J1644; J1720; J1815; J3475; J7030; J7050; J7507; J7512; P9016; Q5105

== ENCOUNTER 2021-09-05 14:29 | Inpatient (IN) | payer MEDICAID ==
[~2021-09-05] VITALS: Ht 165.1 cm; Wt 94.8 kg
[~2021-09-05 14:29] MED LIST changes: +RYTHMOL 15150 MG/TAB PO
[2021-09-05 14:47] LABS: BASO % 0.3 % (0.0-2.0); GRAN # 1.3 K/mm3 (1.4-6.5); GRAN % 44.4 % (42.2-75.2); LYMPH # 1.1 K/mm3 (1.2-3.4); LYMPH % 37.9 % (20.0-51.0); MEAN CELL VOLUME 86 fl (80.0-100.0); MEAN CORPUSCULAR HGB CONC 33 g/dl (33.0-37.0); MEAN PLATELET VOLUME 8.9 fl (7.4-10.4); MONO # 0.5 K/mm3 (0.1-0.6); MONO % 17.1 % (1.7-9.3); PLATELET COUNT 138 K/mm3 (130-400); REDCELL DISTRIBUTION WIDTH-CV 15.6 % (11.5-14.5)
[2021-09-05 14:56] LABS: HEMATOCRIT 29.3 % (42.0-52.0); HEMOGLOBIN 9.8 g/dl (13.5-18.0); MEAN CORPUSCULAR HEMOGLOBIN 29 pg (27-31)
[2021-09-05 15:02] LABS: CALCIUM 9.1 mg/dL (8.4-10.2); CREATININE, serum 2.41 mg/dL (0.72-1.25); POTASSIUM 3.4 mmol/L (3.5-4.5); TOTAL PROTEIN 7.2 gm/dL (6.2-8.1)
[2021-09-05 15:08] LABS: TROPONIN-I 0.024 ng/mL (0.00-0.033)
[2021-09-05 16:38] LABS: MAGNESIUM 1.9 mg/dL (1.6-2.6)
[2021-09-05 16:58] LABS: TSH w REFLEX 0.284 uIU/mL (0.350-4.940)
--- NOTE | 2021-09-05 18:24 | NUR ---
Patient arrived to the floor from ED to room 317. Patient currently has amiodarone running at 33mL/hr. IV is in the right forearm.
[2021-09-05 19:30] VITALS: BP 124/58; PULSE 78; TEMP 99.1
--- NOTE | 2021-09-05 19:30 | NUR ---
Received report from Juanita BENITEZ-- patient came up from ER around 183,, dx afib/rvr, on amiodarone drip at 33cc/hr{ 1mg/min},, VSS at this time, tele on-at this time pt is in SR rate 80/solo,, alert/oriented , denies chest pain/SOB,
[2021-09-05 20:30] VITALS: BP 95/50; PULSE 73; TEMP 99.5
[2021-09-05] MEDS ORDERED: NORVASC 5MG5 MG/TAB PO (20:57)
[2021-09-05] MEDS ORDERED: PRINIVIL5 MG PO (20:58)
[2021-09-05 21:30] VITALS: BP 105/56; PULSE 73
[2021-09-05] MEDS ORDERED: MYFORTIC180 MG PO (21:32)
[2021-09-05 22:30] VITALS: BP 114/51; PULSE 73
[2021-09-05 23:30] VITALS: BP 126/56; PULSE 73; TEMP 100.3
--- NOTE | 2021-09-05 23:45 | NUR ---
Amiodarone drip decreased per order to 17cc/hr{ 0.5mg/min} continue to watch blood pressure closely
--- NOTE | 2021-09-05 23:50 | NUR ---
Jessy called regarding temp 100.3, ok to give Tylenol, she will put in additional orders
[2021-09-06] VITALS (13 sets, daily range): BP systolic 109–149; BP diastolic 53–72; PULSE 64–72; TEMP 98.4–99.6
--- NOTE | 2021-09-06 02:07 | NUR ---
o2 sats while sleeping down to 87-88% on room air-- put on 2L/nc, sats immediately up to 93%
--- NOTE | 2021-09-06 05:17 | NUR ---
Not much sleep due to numerous interuptions- frequent vitals due to amiodarone drip- B/P remained stable -amiodarone drip remains at 17cc/hr {0.5mg/min}, Has received 2 doses of potassium during the night per protocol- repeat lab this am, tele -SR , has been in SR this entire shift. Is NPO per order -
--- NOTE | 2021-09-06 05:45 | NUR ---
Jessy STOUT called with + covid result,, pt moved to Isolation room 359, on contact/droplet Isolation.
[2021-09-06 07:41] LABS: CALCIUM 7.5 mg/dL (8.4-10.2); CREATININE, serum 3.69 mg/dL (0.72-1.25); POTASSIUM 3.8 mmol/L (3.5-4.5)
[2021-09-06 07:54] LABS: TROPONIN-I 0.039 ng/mL (0.00-0.033)
--- NOTE | 2021-09-06 08:00 | NUR ---
Critical troponin called to .
[2021-09-06 08:16] LABS: MEAN CELL VOLUME 90 fl (80.0-100.0); MEAN CORPUSCULAR HGB CONC 32 g/dl (33.0-37.0); MEAN PLATELET VOLUME 9.3 fl (7.4-10.4); PLATELET COUNT 126 K/mm3 (130-400); RED BLOOD COUNT 2.84 M/mm3 (4.20-5.60); REDCELL DISTRIBUTION WIDTH-CV 15.9 % (11.5-14.5)
[2021-09-06 08:18] LABS: HEMATOCRIT 25.5 % (42.0-52.0); HEMOGLOBIN 8.2 g/dl (13.5-18.0); MEAN CORPUSCULAR HEMOGLOBIN 29 pg (27-31)
--- NOTE | 2021-09-06 09:30 | NUR ---
Shift assessment complete. Pt resting in bed watching tv. A&Ox4. Dry cough noted and pt reports mild sore throat. Denies pain or SOA. Lungs CTA. Heart rate and rhythm regular. Amio gtt running at 17 ml/hr per orders. BPs remain stable. Pt denies needs at this time. Continuing to monitor.
[2021-09-06 09:48] LABS: LYMPHOCYTE 35 % (20.0-51.0); NEUTROPHILS 32 % (42.0-75.2)
[2021-09-06 09:49] LABS: ANISOCYTOSIS 1+; BAND 2 % (0-10); HYPOCHROMIA 1+; PLATELET ESTIMATE DECREASED (NORMAL)
--- NOTE | 2021-09-06 14:00 | NUR ---
notified of critical troponin 0.036.
--- NOTE | 2021-09-06 15:44 | NUR ---
Director Instructional Material contacted patient by phone to discuss discharge planning as he is in contact isolation for covid. Patient lives with is sister, Courtney (ph#[phone]) here in [place]. Patient sees Dr. Gonzalez for primary care and obtains medications from [facility] with no difficulties. Patient uses a cane for ambulation but reports he also occasionally uses a cane. Patient reports independence with ADLS. Patient has Advance Directives in EMR which designates his sister Courtney as DPOA-HC. Patient plans to return home upon discharge. PT is recommending home. Discharge Plan: Home
[2021-09-06 17:23] LABS: COLLECTION METHOD CLEAN CATCH
[2021-09-06 17:31] LABS: PH 8 (5-8); SQUAMOUS EPITHELIAL None Seen /hpf (0-10); URINE APPEARANCE Clear (CLEAR/HAZY); URINE BACTERIA None Seen /hpf (NONE SEEN); URINE BILIRUBIN Negative (NEGATIVE); URINE BLOOD Negative (NEGATIVE); URINE COLOR Yellow (YELLOW); URINE GLUCOSE 3+ (NEGATIVE); URINE KETONE Negative (NEGATIVE); URINE LEUKOCYTE ESTERASE Negative (NEGATIVE); URINE NITRATE Negative (NEGATIVE); URINE PROTEIN(semi-quant) 3+ (NEGATIVE); URINE RBC 0-2 /hpf (0-2); URINE UROBILINOGEN Negative (NEGATIVE)
--- NOTE | 2021-09-06 20:30 | NUR ---
Initial shift assessment done- denies pain, VSS, Amiodarone drip at 17cc/hr{0.5mg/min}, B/P very stable throughout the day. Tele on- SR,, HS snack given - no other requests, pt states only symptom is an occasional cough
[2021-09-07 04:23] VITALS: BP 148/67; PULSE 67; TEMP 99
--- NOTE | 2021-09-07 06:02 | NUR ---
No changes , VSS, temp 99.0,, did not get much sleep. Amniodarone drip continues at 17cc/hr. Tele on 65 SR
[2021-09-07 06:26] LABS: BASO % 0.5 % (0.0-2.0); EOS % 0.5 % (0.0-4.0); GRAN % 45.6 % (42.2-75.2); LYMPH # 0.8 K/mm3 (1.2-3.4); LYMPH % 37.6 % (20.0-51.0); MEAN CELL VOLUME 91 fl (80.0-100.0); MEAN CORPUSCULAR HGB CONC 33 g/dl (33.0-37.0); MEAN PLATELET VOLUME 9.2 fl (7.4-10.4); MONO # 0.3 K/mm3 (0.1-0.6); MONO % 14.8 % (1.7-9.3); PLATELET COUNT 134 K/mm3 (130-400); RED BLOOD COUNT 2.77 M/mm3 (4.20-5.60); REDCELL DISTRIBUTION WIDTH-CV 15.8 % (11.5-14.5)
[2021-09-07 06:29] LABS: CALCIUM 7.8 mg/dL (8.4-10.2); CREATININE, serum 5.03 mg/dL (0.72-1.25); HEMATOCRIT 25.1 % (42.0-52.0); HEMOGLOBIN 8.2 g/dl (13.5-18.0); MEAN CORPUSCULAR HEMOGLOBIN 30 pg (27-31)
[2021-09-07 07:45] VITALS: BP 141/60; PULSE 65; TEMP 98.6
--- NOTE | 2021-09-07 08:20 | NUR ---
Shift assessment complete. Pt sitting on side of bed eating breakfast. Denies pain or SOA. Heart RRR. Lungs CTA. Still has mild cough and sore throat. Afebrile. Denies concerns or needs at this time. Call light in reach.
[2021-09-07 11:29] VITALS: BP 131/60; PULSE 66; TEMP 98.7
--- NOTE | 2021-09-07 11:45 | NUR ---
Amiodarone gtt stopped at this time per orders.
[2021-09-07 16:42] VITALS: BP 148/66; PULSE 64; TEMP 97.5
[2021-09-07 20:00] VITALS: BP 135/60; PULSE 64; TEMP 97.9
--- NOTE | 2021-09-07 21:56 | NUR ---
PT ASSESSMENT AND MEDICATIONS GIVEN. PT DENIES CHEST PAIN, PALPITATIONS OR SOB. PT DENIES N/V/D. PT IS PLEASANT AND COOPERATIVE. PT DECLINES NEPRO DRINK, STATES THAT HE DOES NOT LIKE ANY OF THE FLAVORS AND CAN'T DRINK THEM. PT STATES DIALYSIS WILL BE TOMORROW. CALL LIGHT IN REACH, NO OTHER NEEDS AT THIS TIME.
[2021-09-07 23:22] VITALS: BP 167/80; PULSE 66; TEMP 97.8
[2021-09-08 03:30] VITALS: BP 163/79; PULSE 69; TEMP 97.8
--- NOTE | 2021-09-08 06:42 | NUR ---
PT HAD AN UNEVENTFUL NIGHT. PT SLEPT ALL NIGHT. STAYED ON RA
[2021-09-08 07:19] LABS: EOS % 0.5 % (0.0-4.0); GRAN % 47.1 % (42.2-75.2); LYMPH # 0.8 K/mm3 (1.2-3.4); LYMPH % 39.2 % (20.0-51.0); MEAN CELL VOLUME 92 fl (80.0-100.0); MEAN CORPUSCULAR HGB CONC 32 g/dl (33.0-37.0); MEAN PLATELET VOLUME 9.3 fl (7.4-10.4); MONO # 0.3 K/mm3 (0.1-0.6); MONO % 12.7 % (1.7-9.3); PLATELET COUNT 128 K/mm3 (130-400); RED BLOOD COUNT 2.68 M/mm3 (4.20-5.60); REDCELL DISTRIBUTION WIDTH-CV 15.9 % (11.5-14.5)
[2021-09-08 07:22] LABS: CALCIUM 7.6 mg/dL (8.4-10.2); HEMATOCRIT 24.6 % (42.0-52.0); HEMOGLOBIN 7.8 g/dl (13.5-18.0); MEAN CORPUSCULAR HEMOGLOBIN 29 pg (27-31); POTASSIUM 4.3 mmol/L (3.5-4.5)
[2021-09-08 08:00] VITALS: BP 157/84; PULSE 66; TEMP 98.4
--- NOTE | 2021-09-08 08:00 | NUR ---
Patient sitting up in bed watching TV. A&Ox4. VSS. IV CDI. LF arm restricted. Fistula intact. Denies pain and discomfort. Droplet/contact precautions in place. No further needs expressed. Call light within reach
[2021-09-08 11:29] VITALS: BP 143/70; PULSE 65; TEMP 98.1
--- NOTE | 2021-09-08 16:14 | NUR ---
PATIENT TOLERATED HD TX TODAY WITH 900 ML OF FLUID REMOVED. NEXT PLANNED HD TX ON Wednesday09/10/21 @ [facility]. 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
[2021-09-08 16:28] VITALS: BP 177/89; PULSE 69; TEMP 98.6
--- NOTE | 2021-09-08 16:39 | NUR ---
Patient had an uneventful day. Just completed dialysis and tolerated well. Discharge paperwork reviewed with the patient. Patient verbalized an understanding to follow doctors orders. IV removed, tip intact, gauze and coban covering. Call light within reach
[2021-09-08] MEDS ORDERED: PACERONE400 MG PO (18:11)
[2021-09-08] MEDS ORDERED: CORDARONE200 MG/TAB PO (18:11)
--- NOTE | 2021-09-08 18:14 | NUR ---
Patient taken by wheelchair to ED entrance. Discharge paperwork and personal belongings with the patient. No further needs expressed.
== END 2021-09-08 18:16 | disposition home or self-care (01) | DRG 308 ==
LOC: COL.ER 14:29 → MEDICAL 15:56
PROVIDERS: Nurse Practitioner Family; Physician Assistant; Student in an Organized Health Care Education/Training Program; ADMIT Internal Medicine
DX: I48.0 Paroxysmal atrial fibrillation (principal); N18.6 End stage renal disease; U07.1 COVID-19; Z94.0 Kidney transplant status; A79.82 Anaplasmosis [A. phagocytophilum]; I12.0 Hypertensive chronic kidney disease with stage 5 chronic kidney disease or end stage renal disease; D63.1 Anemia in chronic kidney disease; I25.10 Atherosclerotic heart disease of native coronary artery without angina pectoris; E11.42 Type 2 diabetes mellitus with diabetic polyneuropathy; E11.22 Type 2 diabetes mellitus with diabetic chronic kidney disease; K63.9 Disease of intestine, unspecified; I34.0 Nonrheumatic mitral (valve) insufficiency; E87.6 Hypokalemia; K21.9 Gastro-esophageal reflux disease without esophagitis; H40.9 Unspecified glaucoma; G47.30 Sleep apnea, unspecified; M19.90 Unspecified osteoarthritis, unspecified site; E55.9 Vitamin D deficiency, unspecified; F32.A Depression, unspecified; G43.909 Migraine, unspecified, not intractable, without status migrainosus; E78.5 Hyperlipidemia, unspecified; Z79.82 Long term (current) use of aspirin; Z79.4 Long term (current) use of insulin; Z99.2 Dependence on renal dialysis; Z86.718 Personal history of other venous thrombosis and embolism; Z95.5 Presence of coronary angioplasty implant and graft; Z87.891 Personal history of nicotine dependence; Z88.0 Allergy status to penicillin; Z88.1 Allergy status to other antibiotic agents
CPT/HCPCS: 99223-AI; 99233-AI; 99239; J0282; J1644; J1815; J2250; J2405; J3010; J7030; J7060; J7507; J7512; J7517; Q5105

== ENCOUNTER 2021-10-24 20:45 | Emergency (ER) | payer MEDICAID ==
[~2021-10-24] VITALS: Ht 165.1 cm; Wt 89.5 kg
[~2021-10-24 20:45] MED LIST changes: +CORDARONE200 MG/TAB PO; +PACERONE400 MG PO; +PRINIVIL5 MG PO
[2021-10-24 20:55] VITALS: TEMP 98.9
[2021-10-24 22:03] LABS: BASO % 0.2 % (0.0-2.0); EOS # 0.1 K/mm3 (0.0-0.7); EOS % 1.1 % (0.0-4.0); GRAN # 6.6 K/mm3 (1.4-6.5); GRAN % 81.7 % (42.2-75.2); LYMPH # 0.6 K/mm3 (1.2-3.4); LYMPH % 7.4 % (20.0-51.0); MEAN CELL VOLUME 89 fl (80.0-100.0); MEAN CORPUSCULAR HGB CONC 33 g/dl (33.0-37.0); MEAN PLATELET VOLUME 9.1 fl (7.4-10.4); MONO # 0.7 K/mm3 (0.1-0.6); MONO % 8.7 % (1.7-9.3); PLATELET COUNT 181 K/mm3 (130-400); RED BLOOD COUNT 3.11 M/mm3 (4.20-5.60); REDCELL DISTRIBUTION WIDTH-CV 16.3 % (11.5-14.5)
[2021-10-24 22:05] LABS: HEMATOCRIT 27.7 % (42.0-52.0); HEMOGLOBIN 9.1 g/dl (13.5-18.0); MEAN CORPUSCULAR HEMOGLOBIN 29 pg (27-31)
[2021-10-24 22:11] LABS: INR 1.6 (0.8-3.0); PROTHROMBIN TIME 17.6 SECONDS (9.7-12.8)
[2021-10-24 22:21] LABS: BILIRUBIN,TOTAL 0.6 mg/dL (0.2-1.2); CALCIUM 8.6 mg/dL (8.4-10.2); CREATININE, serum 2.4 mg/dL (0.72-1.25); POTASSIUM 3.5 mmol/L (3.5-4.5); TOTAL PROTEIN 6.4 gm/dL (6.2-8.1)
[2021-10-25 00:11] LABS: INR 1.4 (0.8-3.0); PROTHROMBIN TIME 15.5 SECONDS (9.7-12.8)
[2021-10-25 00:33] VITALS: BP 203/110; PULSE 106
== END 2021-10-25 01:03 | disposition short-term general hospital (02) ==
LOC: COL.ER 20:45
PROVIDERS: Emergency Medicine
DX: I48.91 Unspecified atrial fibrillation (principal); I12.0 Hypertensive chronic kidney disease with stage 5 chronic kidney disease or end stage renal disease; E11.22 Type 2 diabetes mellitus with diabetic chronic kidney disease; N18.6 End stage renal disease; Z99.2 Dependence on renal dialysis; Z79.01 Long term (current) use of anticoagulants; Z20.822 Contact with and (suspected) exposure to COVID-19
CPT/HCPCS: J1170; J2270; J2405; J2765; J3010; J3430; J7168